=== PATIENT | male | born 1985 | race Caucasian/White ===

== ENCOUNTER 2016-08-19 14:24 | Emergency (ER) | payer OTHER ==
[2016-08-19] MEDS ORDERED: ONDANSETRON 4MG/2ML VIAL (J2405) As Ordered ONE (16:11)
[2016-08-19] MEDS ORDERED: KETOROLAC 30 MG/ML VIAL (J1885) As Ordered ONE (16:12)
[2016-08-19] MEDS ORDERED: GASTROGRAFIN SOLUTION 30ML (Q9963) As Ordered ONE (16:15)
[2016-08-19 16:27] LABS: BASO # 0.2 K/mm3 (0.0-0.2); EOS # 0.2 K/mm3 (0.0-0.50); EOS % 0.9 % (0.0-3.0); LARGE UNSTAINED CELL # 0.2 K/mm3 (0.0-0.4); LARGE UNSTAINED CELL % 0.9 % (0.0-4.0); LYMPH # 3.5 K/mm3 (1.5-4.5); LYMPH % 17.3 % (24.0-44.0); MEAN CORPUSCULAR HEMOGLOBIN 30.4 pg (27.0-33.0); MEAN CORPUSCULAR HGB CONC 36.1 g/dl (32.0-36.5); MEAN CORPUSCULAR VOLUME 84.1 fl (80.0-96.0); MONO # 0.9 K/mm3 (0.0-0.8); MONO % 4.5 % (0.0-5.0); NEUTROPHILS # 14.5 K/mm3 (1.8-7.7); NEUTROPHILS % 75.4 % (36.0-66.0); PLATELET COUNT, AUTOMATED 286 k/mm3 (150-450); WHITE BLOOD COUNT 19.2 K/mm3 (4.0-10.0)
[2016-08-19 16:48] LABS: ALBUMIN 4.7 GM/DL (3.2-5.2); ALBUMIN/GLOBULIN RATIO 1.31 (1.00-1.93); ALKALINE PHOSPHATASE 76 U/L (45-117); ALT/SGPT 21 U/L (12-78); AMYLASE 39 U/L (25-115); ANION GAP 11 MEQ/L (8-16); AST/SGOT 9 U/L (15-37); BILIRUBIN,DIRECT 0.1 MG/DL (0.0-0.2); BILIRUBIN,TOTAL 0.8 MG/DL (0.2-1.0); BLOOD UREA NITROGEN 25 MG/DL (7-18); CALCIUM LEVEL 9.7 MG/DL (8.5-10.1); CARBON DIOXIDE LEVEL 25 MEQ/L (21-32); CHLORIDE LEVEL 98 MEQ/L (98-107); CREATININE FOR GFR 1.22 MG/DL (0.70-1.30); GLOMERULAR FILTRATION RATE > 60.0 (>60); GLUCOSE, FASTING 121 MG/DL (70-105); POTASSIUM SERUM 3.7 MEQ/L (3.5-5.1); SODIUM LEVEL 134 MEQ/L (136-145); TOTAL PROTEIN 8.3 GM/DL (6.4-8.2)
--- NOTE | 2016-08-19 17:12 | REP ---
Clinical: Right upper quadrant pain with nausea and biliary colic. Findings: Real time lomeli scale ultrasound examination using curved array transducer demonstrates fatty infiltration to the liver without focal hepatic lesion. Limited evaluation the pancreas is unremarkable. The gallbladder is normal and without gallstones, wall thickening, or pericholecystic fluid. No biliary ductal dilatation is appreciated and the common bile duct measures 3.1 mm diameter. Right kidney is normal in reniform shape without hydronephrosis and measures 12.0 x 6.7 x 5.6 cm. No ascites in the visualized right upper quadrant. Impression: Fatty infiltration to the liver. Normal gallbladder and biliary system. Signed by Daryl Clark MD 08/19/2016 05:04 P
[2016-08-19] MEDS ORDERED: METOCLOPRAMIDE INJ 10MG/2ML VIAL (J2765) As Ordered ONE (17:24)
[2016-08-19] MEDS ORDERED: HYDROmorphone HCL 1 MG/ML SYRINGE (J1170) As Ordered ONE (17:24)
[2016-08-19] MEDS ORDERED: ISOVUE-370 76% 100ML VIAL (Q9967) As Ordered ONE (17:46)
--- NOTE | 2016-08-19 18:21 | REP ---
Clinical: Biliary colic. Comparison: 04/22/2015. Technique: Axial contrast enhanced images from the lung bases to the pubic symphysis using oral and 100 ml Isovue 370 intravenous contrast material with coronal and sagittal re-formations. Findings: Lung bases are clear. Visualized heart and pericardium normal. Liver, spleen, pancreas, gallbladder, bilateral adrenal glands and kidneys are normal. Small incidental area of fatty infiltration adjacent to the ligamentum teres within the liver appears benign. The enteric system is without obstruction. Mild mural thickening to the small bowel cannot be excluded and should be correlated with physical examination to exclude the possibility of inflammatory bowel disease. Normal cecum and appendix identified in the right lower quadrant. Pelvis demonstrates normal bladder and age appropriate prostate/seminal vesicles. No pelvic fluid or ascites. No adenopathy. No free air. Vasculature is normal. Surrounding musculoskeletal structures are intact. Impression: Cannot exclude mild diffuse small bowel mural thickening which requires correlation and raising the possibility of inflammatory bowel disease. No further acute intra-abdominal or pelvic pathology appreciated. Signed by Daryl Clark MD 08/19/2016 06:12 P
[2016-08-19] MEDS ORDERED: ONDANSETRON 4 MG ORAL DISINTEGRATING TAB (S0181) As Ordered ONE (19:27)
[2016-08-19] MEDS ORDERED: NORCO 5/325MG TABLET (BULK) As Ordered ONE (19:28)
--- NOTE | 2016-08-19 19:45 | EDDOCDS ---
Nurse's Notes [facility] Name: Clint Palacio Age: 31 yrs Sex: Male : 1985 Arrival Date: 08/19/2016 Time: 14:24 Bed I2 / M2 Private MD: Sera Villa PA-C Diagnosis: Generalized abdominal pain Presentation: 08/19 14:35 Presenting complaint: Patient states: started with some abdominal pain Monday. dy diagnosed with IBS. thinks that he has cyclic vomiting syndrome. having pain to RUQ area. Risk factors: the patient reports not having a history of previous torsion. Adult Sepsis Screening: The patient does not have new or worsening altered mentation. Patient's respiratory rate is less than 22. Systolic blood pressure is greater than 100. Patient has a qSOFA score of 0- Negative Sepsis Screen. Suicide/Homicide risk assessment- the patient denies having any suicidal and/or homicidal ideations and does not present with any other emotional, behavioral or mental health complaints. 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 Transition of care: patient was not received from another setting of care. 14:35 Acuity: RADHA Level 3 dy 14:35 Method Of Arrival: Walkin/Carried/Asstd dy Triage Assessment: 14:37 General: Appears uncomfortable. Pain: Location: right upper quadrant Pain currently is dy 8 out of 10 on a pain scale. HIV screening NA for this visit Offered previously. GI: Reports nausea, vomiting. Historical: - Allergies: No known drug Allergies; - Home Meds: 1. none - PMHx: Irritable bowel syndrome; calcified aortic valve; - PSHx: none; - Social history: Smoking status: Patient states was never smoker of tobacco. No barriers to communication noted, The patient speaks fluent Greenlandic, Speaks appropriately for age. - Family history: Not pertinent. - : The pt / caregiver states he / she is not on anticoagulants. Home medication list is obtained from the patient. - Exposure Risk Screening:: None identified. Screenin:34 Screening information is obtained from the patient. Fall risk: No risks identified. kc3 Assistance ADL's: requires no assistance with activities of daily living. Abuse/DV Screen: The patient / caregiver reports he/she is: not in a situation that causes fear, pain or injury. Nutritional screening: No deficits noted. home support is adequate. 19:43 Advance Directives: There is no active DNR order. mcp Assessment: 16:33 General: Appears uncomfortable, Behavior is appropriate for age, crying. Pain: kc3 Location: right upper quadrant Pain currently is 8 out of 10 on a pain scale. Neurological: Level of Consciousness is awake, alert, obeys commands, Oriented to person, place, time. Respiratory: Respiratory effort is even, unlabored, Respiratory pattern is regular, symmetrical. GI: Abdomen is obese, Bowel sounds present X 4 quads. Abd is soft X 4 quads Abd is tender to palpation in right upper quadrant Reports nausea, vomiting. Derm: Skin is pink, warm & dry. Musculoskeletal: Circulation, motion, and sensation intact. 17:39 General: Appears uncomfortable, Behavior is appropriate for age, cooperative. Pain: kc3 Location: abdomen. Neurological: Level of Consciousness is awake, alert, obeys commands, Oriented to person, place, time. Respiratory: Respiratory effort is even, unlabored, Respiratory pattern is regular, symmetrical. Derm: Skin is pink, warm & dry. Musculoskeletal: Circulation, motion, and sensation intact. 18:52 General: Appears ambulated to bathroom with steady gait.. k 19:42 General: Appears ill, Behavior is cooperative. Pain: Location: abdomen Pain currently mcp is 5 out of 10 on a pain scale. Neurological: No deficits noted. Respiratory: Airway is patent Respiratory effort is even, unlabored. Derm: Skin is pink, warm & dry. Vital Signs: 14:27 BP 176 / 116; Pulse 89; Resp 18 S; Temp 97.5; Pulse Ox 99% on R/A; Weight 117.93 kg dd6 (R); Height 5 ft. 11 in. (180.34 cm); Pain 10/10; 17:28 BP 162 / 94; Pulse 76; Resp 18; Temp 99.2(TE); Pulse Ox 98% on R/A; Pain 6/10; nb2 18:08 BP 128 / 60; Pulse 62; Resp 18; Temp 98.5(O); Pulse Ox 94% on R/A; Pain 3/10; nb2 19:41 BP 169 / 91; Pulse 69; Resp 20; Temp 98; Pulse Ox 99% on R/A; Pain 5/10; mcp 14:27 Body Mass Index 36.26 (117.93 kg, 180.34 cm) dd6 Vitals: 14:27 Log In Time: August 19, 2016 at 14:25. dd6 ED Course: 14:25 Patient visited by Alvin Fisher PCA. dd6 14:25 Sera Villa is Private Physician. dd6 14:25 Patient moved to Waiting dd6 14:27 Patient moved to Pre RCE dd6 14:36 Triage Initiated dy 14:49 Patient moved to Triage 3 dy 15:00 Patient visited by Neha De Los Santos PCA. jb5 15:29 Patient visited by Neha De Los Santos PCA. jb5 15:48 Patient visited by Neha De Los Santos PCA. jb5 15:51 Julia Olea PA-C is PHCP. dt4 15:51 Alia Gonzalez MD is Attending Physician. dt4 15:51 Patient visited by Julia Olea PA-C. dt4 16:01 Patient moved to I2 / M2 jb5 16:15 [facility] Payment Agreement was scanned into [employer] and attached to record. gjb 16:34 Inserted saline lock: 20 gauge in right antecubital area and blood collected. The kc3 patient tolerated the procedure well. Labs drawn. (by ED staff). Sent per order to lab. 16:35 The patient / caregiver is instructed regarding the plan of care and ED course. kc3 16:36 Patient visited by Philly Cartagena RN. kc3 16:46 Patient moved to Ultrasound am17 17:02 Patient moved to I2 / M2 am17 17:16 US Abd Limited Returned. EDMS 17:18 Patient visited by Julia Olea PA-C. dt4 17:28 Patient visited by Gifty Riggs. nb2 18:02 PHCP role handed off by Julia Olea PA-C mo1 18:02 René Clancy PA is PHCP. mo1 18:05 Patient visited by Philly Cartagena RN. kc3 18:08 Patient visited by Gifty Riggs. nb2 18:58 Urine Culture Sent. jmk 18:58 Urinalysis Sent. jmk 19:08 CT ABD & PELVIS: IV and Oral Contrast Returned. EDMS 19:17 Patient visited by Evelyn Bolivar RN. af2 19:18 Sera Villa is Referral Physician. mo1 19:18 Wong Horn is Referral Physician. mo1 19:43 Discontinued lock intact, bleeding controlled, pressure dressing applied, No mcp redness/swelling at site. No procedures done that require assistance. Administered Medications: 16:20 Drug: NS 0.9% 1000 ml [sodium chloride 0.9 % intravenous solution] Route: IV; Rate: kc3 bolus; Site: right antecubital; 18:04 Follow up: IV Status: Completed infusion kc3 16:20 Drug: Ondansetron 4 mg [ondansetron HCl 2 mg/mL intravenous solution (2 mL)] Route: kc3 IVP; Site: right antecubital; 18:04 Follow up: Response: No Adverse Reaction kc3 16:20 Drug: ketorolac 30 mg [ketorolac 30 mg/mL (1 mL) injection solution (1 mL)] Route: IVP; kc3 Site: right antecubital; 18:05 Follow up: Response: Pain is unchanged, physician notified kc3 16:30 Drug: Diatrizoate Meglumine & Sodium 10 ml [diatrizoate meglumine and diat.sodium 66 kc3 %-10 % oral solution (10 mL)] Route: PO; 17:00 Drug: Diatrizoate Meglumine & Sodium 10 ml [diatrizoate meglumine and diat.sodium 66 kc3 %-10 % oral solution (10 mL)] Route: PO; 17:39 Drug: Dilaudid - HYDROmorphone 1 mg [hydromorphone 1 mg/mL injection syringe (1 mL)] kc3 Route: IVP; Site: right antecubital; 17:39 Drug: Metoclopramide 10 mg [metoclopramide 5 mg/mL injection solution] Route: IV; Rate: kc3 40 mg/hr; Infused Over: 15 mins; Site: right antecubital; 18:13 Follow up: IV Status: Completed infusion kc3 18:04 Drug: NS 0.9% 1000 ml [sodium chloride 0.9 % intravenous solution] Route: IV; Rate: kc3 bolus; Site: right antecubital; 19:40 Follow up: IV Status: Completed infusion; IV Intake: 1000ml mcp 19:34 Drug: HYDROcodone-acetaminophen 4 pack- 1 packets [hydrocodone 5 mg-acetaminophen 325 mcp mg tablet (1 tabs)] {Co-Signature: af2 (Evelyn Bolivar RN).} Route: PO; 19:43 Drug: Ondansetron ODT 4 mg [ondansetron 4 mg disintegrating tablet (1 tabs)] Route: PO; mcp Intake: 19:40 IV: 1000.00ml; Total: 1000.00ml. mcp Order Results: Lab Order: Amylase; SPEC'M 08/19/16 16:19 Test: AMYLASE; Value: 39; Range: 25-115; Units: U/L; Status: F Lab Order: Basic Metabolic Profile; SPEC'M 08/19/16 16:19 Test: GLUCOSE, FASTING; Value: 121; Range: 70-105; Abnormal: Above high normal; Units: MG/DL; Status: F Test: BLOOD UREA NITROGEN; Value: 25; Range: 7-18; Abnormal: Above high normal; Units: MG/DL; Status: F Test: CREATININE FOR GFR; Value: 1.22; Range: 0.70-1.30; Units: MG/DL; Status: F Test: GLOMERULAR FILTRATION RATE; Value: > 60.0; Range: >60; Status: F Test: SODIUM LEVEL; Value: 134; Range: 136-145; Abnormal: Below low normal; Units: MEQ/L; Status: F Test: POTASSIUM SERUM; Value: 3.7; Range: 3.5-5.1; Units: MEQ/L; Status: F Test: CHLORIDE LEVEL; Value: 98; Range: 98-107; Units: MEQ/L; Status: F Test: CARBON DIOXIDE LEVEL; Value: 25; Range: 21-32; Units: MEQ/L; Status: F Test: ANION GAP; Value: 11; Range: 8-16; Units: MEQ/L; Status: F Test: CALCIUM LEVEL; Value: 9.7; Range: 8.5-10.1; Units: MG/DL; Status: F Test Note: ; Units are mL/min/1.73 m2 Chronic Kidney Disease Staging per NKF: Stage I & II GFR >=60 Normal to Mildly Decreased Stage III GFR 30-59 Moderately Decreased Stage IV GFR 15-29 Severely Decreased Stage V GFR <15 Very Little GFR Left ESRD GFR <15 on RN OUTPATIENT SURGERY Lab Order: CBC with Diff; SPEC'M 08/19/16 16:19 Test: WHITE BLOOD COUNT; Value: 19.2; Range: 4.0-10.0; Abnormal: Above high normal; Units: K/mm3; Status: F Test: RED BLOOD COUNT; Value: 5.66; Range: 4.30-6.10; Units: M/mm3; Status: F Test: HEMOGLOBIN; Value: 17.2; Range: 14.0-18.0; Units: g/dl; Status: F Test: HEMATOCRIT; Value: 47.7; Range: 42.0-52.0; Units: %; Status: F Test: MEAN CORPUSCULAR VOLUME; Value: 84.1; Range: 80.0-96.0; Units: fl; Status: F Test: MEAN CORPUSCULAR HEMOGLOBIN; Value: 30.4; Range: 27.0-33.0; Units: pg; Status: F Test: MEAN CORPUSCULAR HGB CONC; Value: 36.1; Range: 32.0-36.5; Units: g/dl; Status: F Test: RED CELL DISTRIBUTION WIDTH; Value: 13.0; Range: 11.5-14.5; Units: %; Status: F Test: PLATELET COUNT, AUTOMATED; Value: 286; Range: 150-450; Units: k/mm3; Status: F Test: NEUTROPHILS %; Value: 75.4; Range: 36.0-66.0; Abnormal: Above high normal; Units: %; Status: F Test: LYMPH %; Value: 17.3; Range: 24.0-44.0; Abnormal: Below low normal; Units: %; Status: F Test: MONO %; Value: 4.5; Range: 0.0-5.0; Units: %; Status: F Test: EOS %; Value: 0.9; Range: 0.0-3.0; Units: %; Status: F Test: BASO %; Value: 1.0; Range: 0.0-1.0; Units: %; Status: F Test: LARGE UNSTAINED CELL %; Value: 0.9; Range: 0.0-4.0; Units: %; Status: F Test: NEUTROPHILS #; Value: 14.5; Range: 1.8-7.7; Abnormal: Above high normal; Units: K/mm3; Status: F Test: LYMPH #; Value: 3.5; Range: 1.5-4.5; Units: K/mm3; Status: F Test: MONO #; Value: 0.9; Range: 0.0-0.8; Abnormal: Above high normal; Units: K/mm3; Status: F Test: EOS #; Value: 0.2; Range: 0.0-0.50; Units: K/mm3; Status: F Test: BASO #; Value: 0.2; Range: 0.0-0.2; Units: K/mm3; Status: F Test: LARGE UNSTAINED CELL #; Value: 0.2; Range: 0.0-0.4; Units: K/mm3; Status: F Lab Order: Lipase; [facility]' 08/19/16 16:19 Test: LIPASE; Value: 81; Range: 73-393; Units: U/L; Status: F Lab Order: Liver Profile; [facility]' 08/19/16 16:19 Test: AST/SGOT; Value: 9; Range: 15-37; Abnormal: Below low normal; Units: U/L; Status: F Test: ALT/SGPT; Value: 21; Range: 12-78; Units: U/L; Status: F Test: ALKALINE PHOSPHATASE; Value: 76; Range: 45-117; Units: U/L; Status: F Test: BILIRUBIN,TOTAL; Value: 0.8; Range: 0.2-1.0; Units: MG/DL; Status: F Test: BILIRUBIN,DIRECT; Value: 0.1; Range: 0.0-0.2; Units: MG/DL; Status: F Test: TOTAL PROTEIN; Value: 8.3; Range: 6.4-8.2; Abnormal: Above high normal; Units: GM/DL; Status: F Test: ALBUMIN; Value: 4.7; Range: 3.2-5.2; Units: GM/DL; Status: F Test: ALBUMIN/GLOBULIN RATIO; Value: 1.31; Range: 1.00-1.93; Status: F Lab Order: CRP; [facility]' 08/19/16 16:19 Test: C REACTIVE PROTEIN QUANTITATIV; Value: < 0.30; Range: 0.00-0.30; Units: MG/DL; Status: F Radiology Order: CT ABD & PELVIS: IV and Oral Contrast Test: CT ABD & PELVIS: IV and Oral Contrast REASON FOR EXAMINATION: Biliary Colic; Clinical: Biliary colic.; ; Comparison: 04/22/2015.; ; Technique: Axial contrast enhanced images from the lung bases to the pubic; symphysis using oral and 100 ml Isovue 370 intravenous contrast material with; coronal and sagittal re-formations.; ; Findings:; Lung bases are clear. Visualized heart and pericardium normal.; ; Liver, spleen, pancreas, gallbladder, bilateral adrenal glands and kidneys are; normal. Small incidental area of fatty infiltration adjacent to the ligamentum; teres within the liver appears benign. The enteric system is without; obstruction. Mild mural thickening to the small bowel cannot be excluded and; should be correlated with physical examination to exclude the possibility of; inflammatory bowel disease. Normal cecum and appendix identified in the right; lower quadrant. Pelvis demonstrates normal bladder and age appropriate; prostate/seminal vesicles. No pelvic fluid or ascites. No adenopathy. No free; air. Vasculature is normal. Surrounding musculoskeletal structures are intact.; ; Impression:; Cannot exclude mild diffuse small bowel mural thickening which requires; correlation and raising the possibility of inflammatory bowel disease.; No further acute intra-abdominal or pelvic pathology appreciated.; ; ; Signed by; Daryl Clark MD 08/19/2016 06:12 P; Radiology Order: US Abd Limited Test: US Abd Limited REASON FOR EXAMINATION: Biliary Colic; Clinical: Right upper quadrant pain with nausea and biliary colic.; ; Findings:; Real time lomeli scale ultrasound examination using curved array transducer; demonstrates fatty infiltration to the liver without focal hepatic lesion.; Limited evaluation the pancreas is unremarkable. The gallbladder is normal and; without gallstones, wall thickening, or pericholecystic fluid. No biliary ductal; dilatation is appreciated and the common bile duct measures 3.1 mm diameter.; Right kidney is normal in reniform shape without hydronephrosis and measures 12.0; x 6.7 x 5.6 cm. No ascites in the visualized right upper quadrant.; ; Impression:; Fatty infiltration to the liver.; Normal gallbladder and biliary system.; ; ; Signed by; Daryl Clark MD 08/19/2016 05:04 P; Outcome: 19:18 Discharge ordered by Provider. mo1 19:42 Discharge Assessment: patient administered narcotics - yes. Pt provided with safe mcp discharge. The following High Risk Discharge criteria are identified: None. Discharged to home via wheelchair, with significant other. Condition: stable. Discharge instructions given to patient, Instructed on discharge instructions, follow up and referral plans. medication usage, Demonstrated understanding of instructions, medications, Pt was receptive of discharge instructions/ teaching. Prescriptions given X 2, Work note provided to patient. CT Study completed. Property sent home with patient. 19:43 Patient left the ED. [facility] Signatures: Dispatcher [employer] EDMS Miguel Joya RN RN jmk Peters, Mary, RN RN mcp Youngs, David, RN RN dy Baker, Janet, SHUCKER SHUCKER jb5 Alvin Fisher, SHUCKER SHUCKER dd6 René Clancy PA PA mo1 Lisette Lawrence am17 Julia Olea, PA-C PA-C dt4 Evelyn Bolivar RN RN af2 Philly Cartagena RN RN armando3 Daily Francisco Nicole 2 Evelyn Bolivar RN af2 SERAFIN
--- NOTE | 2016-08-19 19:45 | EDDOCDS ---
Physician Documentation [facility] Name: Clint Palacio Age: 31 yrs Sex: Male : 1985 Arrival Date: 08/19/2016 Time: 14:24 Bed I2 / M2 Private MD: Sera Villa PA-C Disposition: 08/19/16 19:18 Discharged to Home/Self Care. Impression: Generalized abdominal pain. - Condition is Stable. - Discharge Instructions: Abdominal Pain, Adult, Irritable Bowel Syndrome, Adult. - Prescriptions for [place] 5- 325 mg Oral Tablet - take 1 tablet by ORAL route every 6 hours As needed MDD: 4 tabs; 20 tablet. ZOFRAN ODT 4 mg - dissolve 1 tablet by ORAL route 4 times per day As needed do not chew, do not swallow whole; 10 tablet. - Work Release Form - 3 day, Medication Reconciliation, Local Pharmacy Hours form. - Follow up: Sera Villa; When: Call to arrange an appointment; Reason: Recheck today's complaints, Continuance of care. Follow up: Wong Horn; When: Call to arrange an appointment; Reason: Recheck today's complaints, Continuance of care. - Problem is new. - Symptoms are unchanged. Historical: - Allergies: No known drug Allergies; - Home Meds: 1. none - PMHx: Irritable bowel syndrome; calcified aortic valve; - PSHx: none; - Social history: Smoking status: Patient states was never smoker of tobacco. No barriers to communication noted, The patient speaks fluent Indonesian, Speaks appropriately for age. - Family history: Not pertinent. - : The pt / caregiver states he / she is not on anticoagulants. Home medication list is obtained from the patient. - Exposure Risk Screening:: None identified. Vital Signs: 08/19 14:27 BP 176 / 116; Pulse 89; Resp 18 S; Temp 97.5; Pulse Ox 99% on R/A; Weight 117.93 kg / dd6 259.99 lbs (R); Height 5 ft. 11 in. (180.34 cm); Pain 10/10; 17:28 BP 162 / 94; Pulse 76; Resp 18; Temp 99.2(TE); Pulse Ox 98% on R/A; Pain 6/10; nb2 18:08 BP 128 / 60; Pulse 62; Resp 18; Temp 98.5(O); Pulse Ox 94% on R/A; Pain 3/10; nb2 19:41 BP 169 / 91; Pulse 69; Resp 20; Temp 98; Pulse Ox 99% on R/A; Pain 5/10; mcp 14:27 Body Mass Index 36.26 (117.93 kg, 180.34 cm) dd6 MDM: 16:07 NS 0.9% 1000 ml IV at bolus once ordered. dt4 16:07 Ondansetron 4 mg IVP once ordered. dt4 16:07 ketorolac 30 mg IVP once ordered. dt4 16:07 IV Saline Lock ordered. dt4 16:07 Undress patient appropriately for examination ordered. dt4 16:07 NS 0.9% 1000 ml IV at bolus once ordered. dt4 16:08 Amylase Ordered. EDMS 16:08 Basic Metabolic Profile Ordered. EDMS 16:08 CBC with Diff Ordered. EDMS 16:08 Lipase Ordered. EDMS 16:08 Liver Profile Ordered. EDMS 16:08 Urinalysis Ordered. EDMS 16:08 CRP Ordered. EDMS 16:09 Urine Culture Ordered. EDMS 16:09 US Abd Limited Ordered. EDMS 16:09 CT ABD & PELVIS: IV and Oral Contrast Ordered. EDMS 16:09 NOTHING BY MOUTH+DIET ordered. EDMS 16:12 Financial registration complete. gjb 16:15 [facility] [place] was [place] into [employer] and attached to record. gjb 16:35 Diatrizoate Meglumine & Sodium Liquid 10 ml PO once; mix in 290cc of water ordered. kc3 16:35 Diatrizoate Meglumine & Sodium Liquid 10 ml PO once; mix in 290cc of water - admin at kc3 5pm ordered. 17:21 Dilaudid - HYDROmorphone 1 mg IVP once ordered. dt4 17:21 Metoclopramide 10 mg IV at 40 mg/hr once over 15 mins ordered. dt4 19:14 HYDROcodone-acetaminophen 4 pack- 5 mg-325 mg 1 packets PO Per package directions; mo1 Dispense with patient. 1 po q4h prn for pain ordered. 19:14 Ondansetron ODT Oral Disintegrating Tablet 4 mg PO once ordered. mo1 19:15 US Abd Limited Reviewed. mo1 19:15 CT ABD & PELVIS: IV and Oral Contrast Reviewed. mo1 Administered Medications: 16:20 Drug: NS 0.9% 1000 ml [sodium chloride 0.9 % intravenous solution] Route: IV; Rate: kc3 bolus; Site: right antecubital; 18:04 Follow up: IV Status: Completed infusion kc3 16:20 Drug: Ondansetron 4 mg [ondansetron HCl 2 mg/mL intravenous solution (2 mL)] Route: kc3 IVP; Site: right antecubital; 18:04 Follow up: Response: No Adverse Reaction kc3 16:20 Drug: ketorolac 30 mg [ketorolac 30 mg/mL (1 mL) injection solution (1 mL)] Route: IVP; kc3 Site: right antecubital; 18:05 Follow up: Response: Pain is unchanged, physician notified kc3 16:30 Drug: Diatrizoate Meglumine & Sodium 10 ml [diatrizoate meglumine and diat.sodium 66 kc3 %-10 % oral solution (10 mL)] Route: PO; 17:00 Drug: Diatrizoate Meglumine & Sodium 10 ml [diatrizoate meglumine and diat.sodium 66 kc3 %-10 % oral solution (10 mL)] Route: PO; 17:39 Drug: Dilaudid - HYDROmorphone 1 mg [hydromorphone 1 mg/mL injection syringe (1 mL)] kc3 Route: IVP; Site: right antecubital; 17:39 Drug: Metoclopramide 10 mg [metoclopramide 5 mg/mL injection solution] Route: IV; Rate: kc3 40 mg/hr; Infused Over: 15 mins; Site: right antecubital; 18:13 Follow up: IV Status: Completed infusion kc3 18:04 Drug: NS 0.9% 1000 ml [sodium chloride 0.9 % intravenous solution] Route: IV; Rate: kc3 bolus; Site: right antecubital; 19:40 Follow up: IV Status: Completed infusion; IV Intake: 1000ml mcp 19:34 Drug: HYDROcodone-acetaminophen 4 pack- 1 packets [hydrocodone 5 mg-acetaminophen 325 mcp mg tablet (1 tabs)] {Co-Signature: af2 (Evelyn Bolivar RN).} Route: PO; 19:43 Drug: Ondansetron ODT 4 mg [ondansetron 4 mg disintegrating tablet (1 tabs)] Route: PO; [facility] Signatures: Dispatcher [employer] Kalyn Neumann RN RN mcp Youngs, David, RN RN dy O'Hagan, Michael, PA PA mo1 Julia Olea PA-C PA-C dt4 Philly Cartagena RN RN kc3 Daily Francisco RN af2 The chart was reviewed and I authenticate all verbal orders and agree with the evaluation and treatment provided.Attachments: 16:15 [facility] Payment Agreement jayna [email or web address]
--- NOTE | 2016-08-21 20:44 | EDDOCDS ---
Physician Documentation [facility] Name: Clint Palacio Age: 31 yrs Sex: Male : 1985 Arrival Date: 08/19/2016 Time: 14:24 Bed I2 / M2 Private MD: Sera Villa PA-C Disposition: 08/19/16 19:18 Discharged to Home/Self Care. Impression: Generalized abdominal pain. - Condition is Stable. - Discharge Instructions: Abdominal Pain, Adult, Irritable Bowel Syndrome, Adult. - Prescriptions for [place] 5- 325 mg Oral Tablet - take 1 tablet by ORAL route every 6 hours As needed MDD: 4 tabs; 20 tablet. ZOFRAN ODT 4 mg - dissolve 1 tablet by ORAL route 4 times per day As needed do not chew, do not swallow whole; 10 tablet. - Work Release Form - 3 day, Medication Reconciliation, Local Pharmacy Hours form. - Follow up: Sera Villa; When: Call to arrange an appointment; Reason: Recheck today's complaints, Continuance of care. Follow up: Wong Horn; When: Call to arrange an appointment; Reason: Recheck today's complaints, Continuance of care. - Problem is new. - Symptoms are unchanged. Historical: - Allergies: No known drug Allergies; - Home Meds: 1. none - PMHx: Irritable bowel syndrome; calcified aortic valve; - PSHx: none; - Social history: Smoking status: Patient states was never smoker of tobacco. No barriers to communication noted, The patient speaks fluent Chinese, Speaks appropriately for age. - Family history: Not pertinent. - : The pt / caregiver states he / she is not on anticoagulants. Home medication list is obtained from the patient. - Exposure Risk Screening:: None identified. Vital Signs: 08/19 14:27 BP 176 / 116; Pulse 89; Resp 18 S; Temp 97.5; Pulse Ox 99% on R/A; Weight 117.93 kg / dd6 259.99 lbs (R); Height 5 ft. 11 in. (180.34 cm); Pain 10/10; 17:28 BP 162 / 94; Pulse 76; Resp 18; Temp 99.2(TE); Pulse Ox 98% on R/A; Pain 6/10; nb2 18:08 BP 128 / 60; Pulse 62; Resp 18; Temp 98.5(O); Pulse Ox 94% on R/A; Pain 3/10; nb2 19:41 BP 169 / 91; Pulse 69; Resp 20; Temp 98; Pulse Ox 99% on R/A; Pain 5/10; mcp 14:27 Body Mass Index 36.26 (117.93 kg, 180.34 cm) dd6 MDM: 16:07 NS 0.9% 1000 ml IV at bolus once ordered. dt4 16:07 Ondansetron 4 mg IVP once ordered. dt4 16:07 ketorolac 30 mg IVP once ordered. dt4 16:07 IV Saline Lock ordered. dt4 16:07 Undress patient appropriately for examination ordered. dt4 16:07 NS 0.9% 1000 ml IV at bolus once ordered. dt4 16:08 Amylase Ordered. EDMS 16:08 Basic Metabolic Profile Ordered. EDMS 16:08 CBC with Diff Ordered. EDMS 16:08 Lipase Ordered. EDMS 16:08 Liver Profile Ordered. EDMS 16:08 Urinalysis Ordered. EDMS 16:08 CRP Ordered. EDMS 16:09 Urine Culture Ordered. EDMS 16:09 US Abd Limited Ordered. EDMS 16:09 CT ABD & PELVIS: IV and Oral Contrast Ordered. EDMS 16:09 NOTHING BY MOUTH+DIET ordered. EDMS 16:12 Financial registration complete. gjb 16:15 [facility] was scanned into [employer] and attached to record. gjb 16:35 Diatrizoate Meglumine & Sodium Liquid 10 ml PO once; mix in 290cc of water ordered. kc3 16:35 Diatrizoate Meglumine & Sodium Liquid 10 ml PO once; mix in 290cc of water - admin at kc3 5pm ordered. 17:21 Dilaudid - HYDROmorphone 1 mg IVP once ordered. dt4 17:21 Metoclopramide 10 mg IV at 40 mg/hr once over 15 mins ordered. dt4 19:14 HYDROcodone-acetaminophen 4 pack- 5 mg-325 mg 1 packets PO Per package directions; mo1 Dispense with patient. 1 po q4h prn for pain ordered. 19:14 Ondansetron ODT Oral Disintegrating Tablet 4 mg PO once ordered. mo1 19:15 US Abd Limited Reviewed. mo1 19:15 CT ABD & PELVIS: IV and Oral Contrast Reviewed. mo1 08/20 09:04 T-Sheet-- Draft Copy was scanned into [employer] and attached to record. gb Administered Medications: 08/19 16:20 Drug: NS 0.9% 1000 ml [sodium chloride 0.9 % intravenous solution] Route: IV; Rate: kc3 bolus; Site: right antecubital; 18:04 Follow up: IV Status: Completed infusion kc3 16:20 Drug: Ondansetron 4 mg [ondansetron HCl 2 mg/mL intravenous solution (2 mL)] Route: kc3 IVP; Site: right antecubital; 18:04 Follow up: Response: No Adverse Reaction kc3 16:20 Drug: ketorolac 30 mg [ketorolac 30 mg/mL (1 mL) injection solution (1 mL)] Route: IVP; kc3 Site: right antecubital; 18:05 Follow up: Response: Pain is unchanged, physician notified kc3 16:30 Drug: Diatrizoate Meglumine & Sodium 10 ml [diatrizoate meglumine and diat.sodium 66 kc3 %-10 % oral solution (10 mL)] Route: PO; 17:00 Drug: Diatrizoate Meglumine & Sodium 10 ml [diatrizoate meglumine and diat.sodium 66 kc3 %-10 % oral solution (10 mL)] Route: PO; 17:39 Drug: Dilaudid - HYDROmorphone 1 mg [hydromorphone 1 mg/mL injection syringe (1 mL)] kc3 Route: IVP; Site: right antecubital; 17:39 Drug: Metoclopramide 10 mg [metoclopramide 5 mg/mL injection solution] Route: IV; Rate: kc3 40 mg/hr; Infused Over: 15 mins; Site: right antecubital; 18:13 Follow up: IV Status: Completed infusion kc3 18:04 Drug: NS 0.9% 1000 ml [sodium chloride 0.9 % intravenous solution] Route: IV; Rate: kc3 bolus; Site: right antecubital; 19:40 Follow up: IV Status: Completed infusion; IV Intake: 1000ml mcp 19:34 Drug: HYDROcodone-acetaminophen 4 pack- 1 packets [hydrocodone 5 mg-acetaminophen 325 mcp mg tablet (1 tabs)] {Co-Signature: af2 (Evelyn Bolivar RN).} Route: PO; 19:43 Drug: Ondansetron ODT 4 mg [ondansetron 4 mg disintegrating tablet (1 tabs)] Route: PO; [facility] Signatures: Dispatcher [employer] Kalyn Neumann, RN RN Mary Anne Germain, Reg Reg gb Wong Mcgill RN RN dy René Clancy PA PA mo1 Julia Olea PA-C PA-C dt4 Philly Cartagena RN RN armando3 Daily Francisco RN af2 The chart was reviewed and I authenticate all verbal orders and agree with the evaluation and treatment provided.Attachments: 16:15 [facility] Payment Agreement gjb 08/20 09:04 T-Sheet-- Draft Copy gb Chart Complete MTDD
--- NOTE | 2016-08-21 20:44 | EDDOCDS ---
Physician Documentation [facility] Name: Clint Palacio Age: 31 yrs Sex: Male : 1985 Arrival Date: 08/19/2016 Time: 14:24 Bed I2 / M2 Private MD: Sera Villa PA-C Disposition: 08/19/16 19:18 Discharged to Home/Self Care. Impression: Generalized abdominal pain. - Condition is Stable. - Discharge Instructions: Abdominal Pain, Adult, Irritable Bowel Syndrome, Adult. - Prescriptions for [place] 5- 325 mg Oral Tablet - take 1 tablet by ORAL route every 6 hours As needed MDD: 4 tabs; 20 tablet. ZOFRAN ODT 4 mg - dissolve 1 tablet by ORAL route 4 times per day As needed do not chew, do not swallow whole; 10 tablet. - Work Release Form - 3 day, Medication Reconciliation, Local Pharmacy Hours form. - Follow up: Sera Villa; When: Call to arrange an appointment; Reason: Recheck today's complaints, Continuance of care. Follow up: Wong Horn; When: Call to arrange an appointment; Reason: Recheck today's complaints, Continuance of care. - Problem is new. - Symptoms are unchanged. Historical: - Allergies: No known drug Allergies; - Home Meds: 1. none - PMHx: Irritable bowel syndrome; calcified aortic valve; - PSHx: none; - Social history: Smoking status: Patient states was never smoker of tobacco. No barriers to communication noted, The patient speaks fluent Nepali, Speaks appropriately for age. - Family history: Not pertinent. - : The pt / caregiver states he / she is not on anticoagulants. Home medication list is obtained from the patient. - Exposure Risk Screening:: None identified. Vital Signs: 08/19 14:27 BP 176 / 116; Pulse 89; Resp 18 S; Temp 97.5; Pulse Ox 99% on R/A; Weight 117.93 kg / dd6 259.99 lbs (R); Height 5 ft. 11 in. (180.34 cm); Pain 10/10; 17:28 BP 162 / 94; Pulse 76; Resp 18; Temp 99.2(TE); Pulse Ox 98% on R/A; Pain 6/10; nb2 18:08 BP 128 / 60; Pulse 62; Resp 18; Temp 98.5(O); Pulse Ox 94% on R/A; Pain 3/10; nb2 19:41 BP 169 / 91; Pulse 69; Resp 20; Temp 98; Pulse Ox 99% on R/A; Pain 5/10; mcp 14:27 Body Mass Index 36.26 (117.93 kg, 180.34 cm) dd6 MDM: 16:07 NS 0.9% 1000 ml IV at bolus once ordered. dt4 16:07 Ondansetron 4 mg IVP once ordered. dt4 16:07 ketorolac 30 mg IVP once ordered. dt4 16:07 IV Saline Lock ordered. dt4 16:07 Undress patient appropriately for examination ordered. dt4 16:07 NS 0.9% 1000 ml IV at bolus once ordered. dt4 16:08 Amylase Ordered. EDMS 16:08 Basic Metabolic Profile Ordered. EDMS 16:08 CBC with Diff Ordered. EDMS 16:08 Lipase Ordered. EDMS 16:08 Liver Profile Ordered. EDMS 16:08 Urinalysis Ordered. EDMS 16:08 CRP Ordered. EDMS 16:09 Urine Culture Ordered. EDMS 16:09 US Abd Limited Ordered. EDMS 16:09 CT ABD & PELVIS: IV and Oral Contrast Ordered. EDMS 16:09 NOTHING BY MOUTH+DIET ordered. EDMS 16:12 Financial registration complete. gjb 16:15 [facility] Agreement was scanned into [employer] and attached to record. gjb 16:35 Diatrizoate Meglumine & Sodium Liquid 10 ml PO once; mix in 290cc of water ordered. kc3 16:35 Diatrizoate Meglumine & Sodium Liquid 10 ml PO once; mix in 290cc of water - admin at kc3 5pm ordered. 17:21 Dilaudid - HYDROmorphone 1 mg IVP once ordered. dt4 17:21 Metoclopramide 10 mg IV at 40 mg/hr once over 15 mins ordered. dt4 19:14 HYDROcodone-acetaminophen 4 pack- 5 mg-325 mg 1 packets PO Per package directions; mo1 Dispense with patient. 1 po q4h prn for pain ordered. 19:14 Ondansetron ODT Oral Disintegrating Tablet 4 mg PO once ordered. mo1 19:15 US Abd Limited Reviewed. mo1 19:15 CT ABD & PELVIS: IV and Oral Contrast Reviewed. mo1 08/20 09:04 T-Sheet-- Draft Copy was scanned into [employer] and attached to record. gb Administered Medications: 08/19 16:20 Drug: NS 0.9% 1000 ml [sodium chloride 0.9 % intravenous solution] Route: IV; Rate: kc3 bolus; Site: right antecubital; 18:04 Follow up: IV Status: Completed infusion kc3 16:20 Drug: Ondansetron 4 mg [ondansetron HCl 2 mg/mL intravenous solution (2 mL)] Route: kc3 IVP; Site: right antecubital; 18:04 Follow up: Response: No Adverse Reaction kc3 16:20 Drug: ketorolac 30 mg [ketorolac 30 mg/mL (1 mL) injection solution (1 mL)] Route: IVP; kc3 Site: right antecubital; 18:05 Follow up: Response: Pain is unchanged, physician notified kc3 16:30 Drug: Diatrizoate Meglumine & Sodium 10 ml [diatrizoate meglumine and diat.sodium 66 kc3 %-10 % oral solution (10 mL)] Route: PO; 17:00 Drug: Diatrizoate Meglumine & Sodium 10 ml [diatrizoate meglumine and diat.sodium 66 kc3 %-10 % oral solution (10 mL)] Route: PO; 17:39 Drug: Dilaudid - HYDROmorphone 1 mg [hydromorphone 1 mg/mL injection syringe (1 mL)] kc3 Route: IVP; Site: right antecubital; 17:39 Drug: Metoclopramide 10 mg [metoclopramide 5 mg/mL injection solution] Route: IV; Rate: kc3 40 mg/hr; Infused Over: 15 mins; Site: right antecubital; 18:13 Follow up: IV Status: Completed infusion kc3 18:04 Drug: NS 0.9% 1000 ml [sodium chloride 0.9 % intravenous solution] Route: IV; Rate: kc3 bolus; Site: right antecubital; 19:40 Follow up: IV Status: Completed infusion; IV Intake: 1000ml mcp 19:34 Drug: HYDROcodone-acetaminophen 4 pack- 1 packets [hydrocodone 5 mg-acetaminophen 325 mcp mg tablet (1 tabs)] {Co-Signature: af2 (Evelyn Bolivar RN).} Route: PO; 19:43 Drug: Ondansetron ODT 4 mg [ondansetron 4 mg disintegrating tablet (1 tabs)] Route: PO; [facility] Signatures: Dispatcher [employer] Kalyn Neumann, RN RN Mary Anne Germain, Reg Reg gb Wong Mcgill RN RN dy René Clancy PA PA mo1 Julia Olea PA-C PA-C dt4 Philly Cartagena RN RN armando3 Daily Francisco RN af2 The chart was reviewed and I authenticate all verbal orders and agree with the evaluation and treatment provided.Attachments: 16:15 [facility] Payment Agreement gjb 08/20 09:04 T-Sheet-- Draft Copy gb Chart Complete MTDD
--- NOTE | 2016-08-21 20:44 | EDDOCDS ---
Nurse's Notes [facility] Name: Clint Palacio Age: 31 yrs Sex: Male : 1985 Arrival Date: 08/19/2016 Time: 14:24 Bed I2 / M2 Private MD: Sera Villa PA-C Diagnosis: Generalized abdominal pain Presentation: 08/19 14:35 Presenting complaint: Patient states: started with some abdominal pain Monday. dy diagnosed with IBS. thinks that he has cyclic vomiting syndrome. having pain to RUQ area. Risk factors: the patient reports not having a history of previous torsion. Adult Sepsis Screening: The patient does not have new or worsening altered mentation. Patient's respiratory rate is less than 22. Systolic blood pressure is greater than 100. Patient has a qSOFA score of 0- Negative Sepsis Screen. Suicide/Homicide risk assessment- the patient denies having any suicidal and/or homicidal ideations and does not present with any other emotional, behavioral or mental health complaints. 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 Transition of care: patient was not received from another setting of care. 14:35 Acuity: RADHA Level 3 dy 14:35 Method Of Arrival: Walkin/Carried/Asstd dy Triage Assessment: 14:37 General: Appears uncomfortable. Pain: Location: right upper quadrant Pain currently is dy 8 out of 10 on a pain scale. HIV screening NA for this visit Offered previously. GI: Reports nausea, vomiting. Historical: - Allergies: No known drug Allergies; - Home Meds: 1. none - PMHx: Irritable bowel syndrome; calcified aortic valve; - PSHx: none; - Social history: Smoking status: Patient states was never smoker of tobacco. No barriers to communication noted, The patient speaks fluent Maltese, Speaks appropriately for age. - Family history: Not pertinent. - : The pt / caregiver states he / she is not on anticoagulants. Home medication list is obtained from the patient. - Exposure Risk Screening:: None identified. Screenin:34 Screening information is obtained from the patient. Fall risk: No risks identified. kc3 Assistance ADL's: requires no assistance with activities of daily living. Abuse/DV Screen: The patient / caregiver reports he/she is: not in a situation that causes fear, pain or injury. Nutritional screening: No deficits noted. home support is adequate. 19:43 Advance Directives: There is no active DNR order. mcp Assessment: 16:33 General: Appears uncomfortable, Behavior is appropriate for age, crying. Pain: kc3 Location: right upper quadrant Pain currently is 8 out of 10 on a pain scale. Neurological: Level of Consciousness is awake, alert, obeys commands, Oriented to person, place, time. Respiratory: Respiratory effort is even, unlabored, Respiratory pattern is regular, symmetrical. GI: Abdomen is obese, Bowel sounds present X 4 quads. Abd is soft X 4 quads Abd is tender to palpation in right upper quadrant Reports nausea, vomiting. Derm: Skin is pink, warm & dry. Musculoskeletal: Circulation, motion, and sensation intact. 17:39 General: Appears uncomfortable, Behavior is appropriate for age, cooperative. Pain: kc3 Location: abdomen. Neurological: Level of Consciousness is awake, alert, obeys commands, Oriented to person, place, time. Respiratory: Respiratory effort is even, unlabored, Respiratory pattern is regular, symmetrical. Derm: Skin is pink, warm & dry. Musculoskeletal: Circulation, motion, and sensation intact. 18:52 General: Appears ambulated to bathroom with steady gait.. k 19:42 General: Appears ill, Behavior is cooperative. Pain: Location: abdomen Pain currently mcp is 5 out of 10 on a pain scale. Neurological: No deficits noted. Respiratory: Airway is patent Respiratory effort is even, unlabored. Derm: Skin is pink, warm & dry. Vital Signs: 14:27 BP 176 / 116; Pulse 89; Resp 18 S; Temp 97.5; Pulse Ox 99% on R/A; Weight 117.93 kg dd6 (R); Height 5 ft. 11 in. (180.34 cm); Pain 10/10; 17:28 BP 162 / 94; Pulse 76; Resp 18; Temp 99.2(TE); Pulse Ox 98% on R/A; Pain 6/10; nb2 18:08 BP 128 / 60; Pulse 62; Resp 18; Temp 98.5(O); Pulse Ox 94% on R/A; Pain 3/10; nb2 19:41 BP 169 / 91; Pulse 69; Resp 20; Temp 98; Pulse Ox 99% on R/A; Pain 5/10; mcp 14:27 Body Mass Index 36.26 (117.93 kg, 180.34 cm) dd6 Vitals: 14:27 Log In Time: August 19, 2016 at 14:25. dd6 ED Course: 14:25 Patient visited by Alvin Fisher PCA. dd6 14:25 Sera Villa is Private Physician. dd6 14:25 Patient moved to Waiting dd6 14:27 Patient moved to Pre RCE dd6 14:36 Triage Initiated dy 14:49 Patient moved to Triage 3 dy 15:00 Patient visited by Neha De Los Santos PCA. jb5 15:29 Patient visited by Neha De Los Santos PCA. jb5 15:48 Patient visited by Neha De Los Santos PCA. jb5 15:51 Julia Olea PA-C is PHCP. dt4 15:51 Alia Gonzalez MD is Attending Physician. dt4 15:51 Patient visited by Julia Olea PA-C. dt4 16:01 Patient moved to I2 / M2 jb5 16:15 [facility] Payment Agreement was scanned into [facility] and attached to record. gjb 16:34 Inserted saline lock: 20 gauge in right antecubital area and blood collected. The kc3 patient tolerated the procedure well. Labs drawn. (by ED staff). Sent per order to lab. 16:35 The patient / caregiver is instructed regarding the plan of care and ED course. kc3 16:36 Patient visited by Philly Cartagena RN. kc3 16:46 Patient moved to Ultrasound am17 17:02 Patient moved to I2 / M2 am17 17:16 US Abd Limited Returned. EDMS 17:18 Patient visited by Julia Olea PA-C. dt4 17:28 Patient visited by Gifty Riggs. nb2 18:02 PHCP role handed off by Julia Olea PA-C mo1 18:02 René Clancy PA is PHCP. mo1 18:05 Patient visited by Philly Cartagena RN. kc3 18:08 Patient visited by Gifty Riggs. nb2 18:58 Urine Culture Sent. jmk 18:58 Urinalysis Sent. jmk 19:08 CT ABD & PELVIS: IV and Oral Contrast Returned. EDMS 19:17 Patient visited by Evelyn Bolivar RN. af2 19:18 Sera Villa is Referral Physician. mo1 19:18 Wong Horn is Referral Physician. mo1 19:43 Discontinued lock intact, bleeding controlled, pressure dressing applied, No mcp redness/swelling at site. No procedures done that require assistance. 08/20 09:04 T-Sheet-- Draft Copy was scanned into [facility] and attached to record. gb Administered Medications: 08/19 16:20 Drug: NS 0.9% 1000 ml [sodium chloride 0.9 % intravenous solution] Route: IV; Rate: kc3 bolus; Site: right antecubital; 18:04 Follow up: IV Status: Completed infusion kc3 16:20 Drug: Ondansetron 4 mg [ondansetron HCl 2 mg/mL intravenous solution (2 mL)] Route: kc3 IVP; Site: right antecubital; 18:04 Follow up: Response: No Adverse Reaction kc3 16:20 Drug: ketorolac 30 mg [ketorolac 30 mg/mL (1 mL) injection solution (1 mL)] Route: IVP; kc3 Site: right antecubital; 18:05 Follow up: Response: Pain is unchanged, physician notified kc3 16:30 Drug: Diatrizoate Meglumine & Sodium 10 ml [diatrizoate meglumine and diat.sodium 66 kc3 %-10 % oral solution (10 mL)] Route: PO; 17:00 Drug: Diatrizoate Meglumine & Sodium 10 ml [diatrizoate meglumine and diat.sodium 66 kc3 %-10 % oral solution (10 mL)] Route: PO; 17:39 Drug: Dilaudid - HYDROmorphone 1 mg [hydromorphone 1 mg/mL injection syringe (1 mL)] kc3 Route: IVP; Site: right antecubital; 17:39 Drug: Metoclopramide 10 mg [metoclopramide 5 mg/mL injection solution] Route: IV; Rate: kc3 40 mg/hr; Infused Over: 15 mins; Site: right antecubital; 18:13 Follow up: IV Status: Completed infusion kc3 18:04 Drug: NS 0.9% 1000 ml [sodium chloride 0.9 % intravenous solution] Route: IV; Rate: kc3 bolus; Site: right antecubital; 19:40 Follow up: IV Status: Completed infusion; IV Intake: 1000ml mcp 19:34 Drug: HYDROcodone-acetaminophen 4 pack- 1 packets [hydrocodone 5 mg-acetaminophen 325 mcp mg tablet (1 tabs)] {Co-Signature: af2 (Evelyn Bolivar RN).} Route: PO; 19:43 Drug: Ondansetron ODT 4 mg [ondansetron 4 mg disintegrating tablet (1 tabs)] Route: PO; mcp Intake: 19:40 IV: 1000.00ml; Total: 1000.00ml. mcp Order Results: Lab Order: Amylase; SPEC'M 08/19/16 16:19 Test: AMYLASE; Value: 39; Range: 25-115; Units: U/L; Status: F Lab Order: Basic Metabolic Profile; SPEC'M 08/19/16 16:19 Test: GLUCOSE, FASTING; Value: 121; Range: 70-105; Abnormal: Above high normal; Units: MG/DL; Status: F Test: BLOOD UREA NITROGEN; Value: 25; Range: 7-18; Abnormal: Above high normal; Units: MG/DL; Status: F Test: CREATININE FOR GFR; Value: 1.22; Range: 0.70-1.30; Units: MG/DL; Status: F Test: GLOMERULAR FILTRATION RATE; Value: > 60.0; Range: >60; Status: F Test: SODIUM LEVEL; Value: 134; Range: 136-145; Abnormal: Below low normal; Units: MEQ/L; Status: F Test: POTASSIUM SERUM; Value: 3.7; Range: 3.5-5.1; Units: MEQ/L; Status: F Test: CHLORIDE LEVEL; Value: 98; Range: 98-107; Units: MEQ/L; Status: F Test: CARBON DIOXIDE LEVEL; Value: 25; Range: 21-32; Units: MEQ/L; Status: F Test: ANION GAP; Value: 11; Range: 8-16; Units: MEQ/L; Status: F Test: CALCIUM LEVEL; Value: 9.7; Range: 8.5-10.1; Units: MG/DL; Status: F Test Note: ; Units are mL/min/1.73 m2 Chronic Kidney Disease Staging per NKF: Stage I & II GFR >=60 Normal to Mildly Decreased Stage III GFR 30-59 Moderately Decreased Stage IV GFR 15-29 Severely Decreased Stage V GFR <15 Very Little GFR Left ESRD GFR <15 on MATERIAL DAMAGE APPRAISER Lab Order: CBC with Diff; SPEC'M 08/19/16 16:19 Test: WHITE BLOOD COUNT; Value: 19.2; Range: 4.0-10.0; Abnormal: Above high normal; Units: K/mm3; Status: F Test: RED BLOOD COUNT; Value: 5.66; Range: 4.30-6.10; Units: M/mm3; Status: F Test: HEMOGLOBIN; Value: 17.2; Range: 14.0-18.0; Units: g/dl; Status: F Test: HEMATOCRIT; Value: 47.7; Range: 42.0-52.0; Units: %; Status: F Test: MEAN CORPUSCULAR VOLUME; Value: 84.1; Range: 80.0-96.0; Units: fl; Status: F Test: MEAN CORPUSCULAR HEMOGLOBIN; Value: 30.4; Range: 27.0-33.0; Units: pg; Status: F Test: MEAN CORPUSCULAR HGB CONC; Value: 36.1; Range: 32.0-36.5; Units: g/dl; Status: F Test: RED CELL DISTRIBUTION WIDTH; Value: 13.0; Range: 11.5-14.5; Units: %; Status: F Test: PLATELET COUNT, AUTOMATED; Value: 286; Range: 150-450; Units: k/mm3; Status: F Test: NEUTROPHILS %; Value: 75.4; Range: 36.0-66.0; Abnormal: Above high normal; Units: %; Status: F Test: LYMPH %; Value: 17.3; Range: 24.0-44.0; Abnormal: Below low normal; Units: %; Status: F Test: MONO %; Value: 4.5; Range: 0.0-5.0; Units: %; Status: F Test: EOS %; Value: 0.9; Range: 0.0-3.0; Units: %; Status: F Test: BASO %; Value: 1.0; Range: 0.0-1.0; Units: %; Status: F Test: LARGE UNSTAINED CELL %; Value: 0.9; Range: 0.0-4.0; Units: %; Status: F Test: NEUTROPHILS #; Value: 14.5; Range: 1.8-7.7; Abnormal: Above high normal; Units: K/mm3; Status: F Test: LYMPH #; Value: 3.5; Range: 1.5-4.5; Units: K/mm3; Status: F Test: MONO #; Value: 0.9; Range: 0.0-0.8; Abnormal: Above high normal; Units: K/mm3; Status: F Test: EOS #; Value: 0.2; Range: 0.0-0.50; Units: K/mm3; Status: F Test: BASO #; Value: 0.2; Range: 0.0-0.2; Units: K/mm3; Status: F Test: LARGE UNSTAINED CELL #; Value: 0.2; Range: 0.0-0.4; Units: K/mm3; Status: F Lab Order: Lipase; SPEC'M 08/19/16 16:19 Test: LIPASE; Value: 81; Range: 73-393; Units: U/L; Status: F Lab Order: Liver Profile; SPEC'M 08/19/16 16:19 Test: AST/SGOT; Value: 9; Range: 15-37; Abnormal: Below low normal; Units: U/L; Status: F Test: ALT/SGPT; Value: 21; Range: 12-78; Units: U/L; Status: F Test: ALKALINE PHOSPHATASE; Value: 76; Range: 45-117; Units: U/L; Status: F Test: BILIRUBIN,TOTAL; Value: 0.8; Range: 0.2-1.0; Units: MG/DL; Status: F Test: BILIRUBIN,DIRECT; Value: 0.1; Range: 0.0-0.2; Units: MG/DL; Status: F Test: TOTAL PROTEIN; Value: 8.3; Range: 6.4-8.2; Abnormal: Above high normal; Units: GM/DL; Status: F Test: ALBUMIN; Value: 4.7; Range: 3.2-5.2; Units: GM/DL; Status: F Test: ALBUMIN/GLOBULIN RATIO; Value: 1.31; Range: 1.00-1.93; Status: F Lab Order: Urinalysis; SPEC'M 08/19/16 18:56 Test: APPEARANCE, URINE; Value: CLEAR; Range: CLEAR; Status: F Test: COLOR, URINE; Value: YELLOW; Range: YELLOW; Status: F Test: PH,URINE; Value: 6.0; Range: 5.0-9.0; Units: UNITS; Status: F Test: SPECIFIC GRAVITY URINE AUTO; Value: >1.060; Range: 1.002-1.035; Abnormal: Above high normal; Status: F Test: PROTEIN, URINE AUTO; Value: NEGATIVE; Range: NEGATIVE; Units: mg/dL; Status: F Test: GLUCOSE, URINE (UA) AUTO; Value: NEGATIVE; Range: NEGATIVE; Units: mg/dL; Status: F Test: KETONE, URINE AUTO; Value: TRACE; Range: NEGATIVE; Abnormal: Above high normal; Units: mg/dL; Status: F Test: UROBILINOGEN, URINE AUTO; Value: 0.2; Range: 0.0-2.0; Units: mg/dL; Status: F Test: BILIRUBIN, URINE AUTO; Value: NEGATIVE; Range: NEGATIVE; Status: F Test: NITRITE, URINE AUTO; Value: NEGATIVE; Range: NEGATIVE; Status: F Test: LEUKOCYTE ESTERASE, URINE AUTO; Value: NEGATIVE; Range: NEGATIVE; Status: F Test: BLOOD, URINE BLOOD; Value: NEGATIVE; Range: NEGATIVE; Status: F Test: WBC, URINE AUTO; Value: 1; Range: 0-3; Units: /HPF; Status: F Test: RBC, URINE AUTO; Value: 3; Range: 0-3; Units: /HPF; Status: F Test: BACTERIA, URINE AUTO; Value: NEGATIVE; Range: NEGATIVE; Status: F Test: SQUAMOUS EPITHELIAL CELL UR AU; Value: 0; Range: 0-6; Units: /HPF; Status: F Test: MUCUS, URINE; Value: SMALL; Range: NEGATIVE; Status: F Test: HYALINE CAST, URINE AUTO; Value: 0; Range: 0-1; Units: /LPF; Status: F Test Note: ; >1.060, CONFIRMED WITH REFRACTOMETER. Lab Order: Urine Culture; SPEC'M 08/19/16 18:56 Test: URINE CULTURE; Value: URINE CULTURE RESULT NO GROWTH; Status: F Lab Order: CRP; SPEC'M 08/19/16 16:19 Test: C REACTIVE PROTEIN QUANTITATIV; Value: < 0.30; Range: 0.00-0.30; Units: MG/DL; Status: F Radiology Order: CT ABD & PELVIS: IV and Oral Contrast Test: CT ABD & PELVIS: IV and Oral Contrast REASON FOR EXAMINATION: Biliary Colic; Clinical: Biliary colic.; ; Comparison: 04/22/2015.; ; Technique: Axial contrast enhanced images from the lung bases to the pubic; symphysis using oral and 100 ml Isovue 370 intravenous contrast material with; coronal and sagittal re-formations.; ; Findings:; Lung bases are clear. Visualized heart and pericardium normal.; ; Liver, spleen, pancreas, gallbladder, bilateral adrenal glands and kidneys are; normal. Small incidental area of fatty infiltration adjacent to the ligamentum; teres within the liver appears benign. The enteric system is without; obstruction. Mild mural thickening to the small bowel cannot be excluded and; should be correlated with physical examination to exclude the possibility of; inflammatory bowel disease. Normal cecum and appendix identified in the right; lower quadrant. Pelvis demonstrates normal bladder and age appropriate; prostate/seminal vesicles. No pelvic fluid or ascites. No adenopathy. No free; air. Vasculature is normal. Surrounding musculoskeletal structures are intact.; ; Impression:; Cannot exclude mild diffuse small bowel mural thickening which requires; correlation and raising the possibility of inflammatory bowel disease.; No further acute intra-abdominal or pelvic pathology appreciated.; ; ; Signed by; Daryl Clark MD 08/19/2016 06:12 P; Radiology Order: US Abd Limited Test: US Abd Limited REASON FOR EXAMINATION: Biliary Colic; Clinical: Right upper quadrant pain with nausea and biliary colic.; ; Findings:; Real time lomeli scale ultrasound examination using curved array transducer; demonstrates fatty infiltration to the liver without focal hepatic lesion.; Limited evaluation the pancreas is unremarkable. The gallbladder is normal and; without gallstones, wall thickening, or pericholecystic fluid. No biliary ductal; dilatation is appreciated and the common bile duct measures 3.1 mm diameter.; Right kidney is normal in reniform shape without hydronephrosis and measures 12.0; x 6.7 x 5.6 cm. No ascites in the visualized right upper quadrant.; ; Impression:; Fatty infiltration to the liver.; Normal gallbladder and biliary system.; ; ; Signed by; Daryl Clark MD 08/19/2016 05:04 P; Outcome: 19:18 Discharge ordered by Provider. mo1 19:42 Discharge Assessment: patient administered narcotics - yes. Pt provided with safe mcp discharge. The following High Risk Discharge criteria are identified: None. Discharged to home via wheelchair, with significant other. Condition: stable. Discharge instructions given to patient, Instructed on discharge instructions, follow up and referral plans. medication usage, Demonstrated understanding of instructions, medications, Pt was receptive of discharge instructions/ teaching. Prescriptions given X 2, Work note provided to patient. CT Study completed. Property sent home with patient. 19:43 Patient left the ED. [facility] Signatures: Dispatcher [employer] EDMS Miguel Joya,RN RN Kalyn Cornelius RN RN Mary Anne Germain, Reg Reg Wong Castellon, RN RN Neha Valente, MOUNTER SMOKING PIPE MOUNTER SMOKING PIPE jb5 Alvin Fisher, MOUNTER SMOKING PIPE MOUNTER SMOKING PIPE dd6 René Clancy PA PA mo1 Lisette Lawrence am17 Julia Olea, PA-C PA-C dt4 Evelyn Bolivar,RN RN af2 Philly CartagenaRN RN armando3 Daily Francisco Nicole 2 Evelyn Bolivar RN af2 Chart Complete MTDD
== END 2016-08-19 19:43 | disposition home or self-care (01) ==
LOC: M ED 14:24
DX: R10.11 Right upper quadrant pain (principal); R11.2 Nausea with vomiting, unspecified; K58.9 Irritable bowel syndrome, unspecified; I70.0 Atherosclerosis of aorta; Z88.5 Allergy status to narcotic agent
CPT/HCPCS: 36415; 74177; 76705; 80048; 80076; 81001; 82150; 83690; 85025; 86140; 87086; 96361; 96365; 96375; 99284; J1170; J1885; J2405; J2765; Q9963; Q9967

== ENCOUNTER 2016-10-03 13:25 | Emergency (ER) | payer OTHER ==
[2016-10-03] MEDS ORDERED: KETOROLAC 30 MG/ML VIAL (J1885) As Ordered ONE (15:09)
[2016-10-03] MEDS ORDERED: ONDANSETRON 4MG/2ML VIAL (J2405) As Ordered ONE (15:09)
[2016-10-03 15:29] LABS: BASO # 0.1 K/mm3 (0.0-0.2); BASO % 0.3 % (0.0-1.0); EOS # 0.3 K/mm3 (0.0-0.50); EOS % 1.5 % (0.0-3.0); LARGE UNSTAINED CELL # 0.3 K/mm3 (0.0-0.4); LARGE UNSTAINED CELL % 1.1 % (0.0-4.0); LYMPH # 5.5 K/mm3 (1.5-4.5); LYMPH % 23.4 % (24.0-44.0); MEAN CORPUSCULAR HEMOGLOBIN 30.9 pg (27.0-33.0); MEAN CORPUSCULAR HGB CONC 36.4 g/dl (32.0-36.5); MONO # 1.4 K/mm3 (0.0-0.8); MONO % 6.3 % (0.0-5.0); NEUTROPHILS # 15.1 K/mm3 (1.8-7.7); NEUTROPHILS % 67.3 % (36.0-66.0); PLATELET COUNT, AUTOMATED 307 k/mm3 (150-450); RED CELL DISTRIBUTION WIDTH 12.5 % (11.5-14.5)
[2016-10-03 15:33] LABS: WHITE BLOOD COUNT 22.5 K/mm3 (4.0-10.0)
[2016-10-03 16:25] LABS: ALBUMIN/GLOBULIN RATIO 1.29 (1.00-1.93); ALKALINE PHOSPHATASE 68 U/L (45-117); ALT/SGPT 14 U/L (12-78); ANION GAP 12 MEQ/L (8-16); AST/SGOT 8 U/L (15-37); BILIRUBIN,DIRECT 0.2 MG/DL (0.0-0.2); BILIRUBIN,TOTAL 0.8 MG/DL (0.2-1.0); BLOOD UREA NITROGEN 22 MG/DL (7-18); CALCIUM LEVEL 8.1 MG/DL (8.5-10.1); CARBON DIOXIDE LEVEL 28 MEQ/L (21-32); CHLORIDE LEVEL 93 MEQ/L (98-107); GLOMERULAR FILTRATION RATE > 60.0 (>60); GLUCOSE, FASTING 102 MG/DL (70-105); SODIUM LEVEL 133 MEQ/L (136-145); TOTAL PROTEIN 7.1 GM/DL (6.4-8.2)
--- NOTE | 2016-10-03 16:55 | EDDOCDS ---
Nurse's Notes [facility] Name: Clint Palacio Age: 31 yrs Sex: Male : 1985 Arrival Date: 10/03/2016 Time: 13:25 Bed I5 / M5 Private MD: Sera Villa PA-C Diagnosis: Hypokalemia;Nausea and vomiting;Diarrhea, unspecified Presentation: 10/03 13:28 Presenting complaint: Patient states: "IBS flare up again." Reports "stomach issues" ead since Monday. C/o n/v/d. Adult Sepsis Screening: The patient does not have new or worsening altered mentation. Patient's respiratory rate is less than 22. Systolic blood pressure is greater than 100. Patient has a qSOFA score of 0- Negative Sepsis Screen. Suicide/Homicide risk assessment- the patient denies having any suicidal and/or homicidal ideations and does not present with any other emotional, behavioral or mental health complaints. 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 Transition of care: patient was not received from another setting of care. 13:28 Acuity: RADHA Level 3 ead 13:28 Method Of Arrival: Walkin/Carried/Asstd ead Triage Assessment: 13:31 General: Appears in no apparent distress, comfortable, Behavior is appropriate for age, ead cooperative. Pain: Location: abdomen Pain currently is 5 out of 10 on a pain scale. HIV screening NA for this visit Offered previously. Neurological: No deficits noted. Respiratory: Airway is patent Respiratory effort is even, unlabored. GI: Reports diarrhea, lower abdominal pain, upper abd pain, nausea, vomiting. Derm: Skin is pink, warm & dry. Historical: - Allergies: no known allergies; - Home Meds: 1. Zofran Oral as needed (Last dose: 10/01/2016) 2. [place] 5-325 mg Oral tab every 6 hours (Last dose: 09/28/2016) - PMHx: calcified aortic valve; Irritable bowel syndrome; - PSHx: none; - Social history: Smoking status: Patient states former smoker of tobacco. No barriers to communication noted, The patient speaks fluent Dutch, Speaks appropriately for age. - Family history: Not pertinent. - : The pt / caregiver states he / she is not on anticoagulants. Home medication list is obtained from the patient. - Exposure Risk Screening:: None identified. Screenin:23 Screening information is obtained from the patient. Fall risk: No risks identified. k Assistance ADL's: requires no assistance with activities of daily living. Abuse/DV Screen: The patient / caregiver reports he/she is: not in a situation that causes fear, pain or injury. Nutritional screening: No deficits noted. Advance Directives: Currently, there is no health care proxy. There is no active DNR order. There is no living will. There is no Power of Outside Collector. Advance directive information has not previously been placed in an [facility] medical record. Further advance directive information is declined. home support is adequate. Assessment: 15:23 General: Appears in no apparent distress, skin warm and dry color satisfactory. moist jmk pink oral mucosa. Indicates discomfort to right upper abdomen. ABD is soft and non distended with bowel sounds present x 4. Increased pain with palp to RUQ. GI: Abdomen is Bowel sounds present X 4 quads. Abd is soft X 4 quads Abd is tender to palpation in left upper quadrant. 15:59 General: Appears pain free. IV fluids continue.. k 16:53 General: Appears pain free. receptive to discharge. [facility] Vital Signs: 13:26 BP 137 / 77; Pulse 82; Resp 16; Temp 97.4(O); Pulse Ox 98% ; Weight 113.4 kg (R); lr2 Height 5 ft. 11 in. (180.34 cm) (R); Pain 5/10; 15:55 BP 132 / 76; Pulse 78; Resp 18; Temp 98.4; Pulse Ox 98% ; dls 16:47 BP 111 / 56; Pulse 65; Resp 18; Temp 98.3; Pulse Ox 97% ; Pain 0/10; jam1 13:26 Body Mass Index 34.87 (113.40 kg, 180.34 cm) lr2 Vitals: 13:26 Log In Time: October 03, 2016 at 13:25. lr2 ED Course: 13:26 Patient visited by Veronica Mercado. lr2 13:26 Patient moved to Waiting lr2 13:28 Sera Villa is Private Physician. lr2 13:28 Patient moved to Pre RCE lr2 13:29 Triage Initiated ead 14:40 Patient moved to Triage 1 ar3 14:46 [facility]. cc10 14:46 Santy Mcclelland MD is Attending Physician. cc10 14:56 Patient visited by Devante Ramos PA-C. cc10 14:56 Patient visited by Devante Ramos PA-C. cc10 15:03 Patient moved to I5 / [facility] 15:06 Urinalysis Sent. ar3 15:22 Basic Metabolic Profile Sent. jmk 15:22 CBC with Diff Sent. jmk 15:22 Lipase Sent. jmk 15:22 Liver Profile Sent. jmk 15:23 The patient / caregiver is instructed regarding the plan of care and ED course. jmk 15:23 Inserted saline lock: 20 gauge in left antecubital area. jmk 15:34 [facility] Payment Agreement was scanned into [employer] and attached to record. lg 15:57 Patient visited by Monica Hastings RN. dls 16:01 Lactic Acid ([place] tube on ice) Sent. dls 16:01 -Blood Culture Sent. dls 16:44 Sera Villa is Referral Physician. cc10 16:53 Discontinued lock intact, bleeding controlled, pressure dressing applied, No jmk redness/swelling at site. No procedures done that require assistance. Administered Medications: 15:22 Drug: NS 0.9% 1000 ml Route: IV; Rate: bolus; Site: left antecubital; k 15:22 Drug: Ondansetron 4 mg Route: IVP; Site: left antecubital; k 15:23 Drug: ketorolac 30 mg [ketorolac 30 mg/mL (1 mL) injection solution (1 mL)] Route: IVP; [facility] Site: left antecubital; Order Results: Lab Order: Basic Metabolic Profile; SPEC'M 10/03/16 15:52 Test: GLUCOSE, FASTING; Value: 102; Range: 70-105; Units: MG/DL; Status: F Test: BLOOD UREA NITROGEN; Value: 22; Range: 7-18; Abnormal: Above high normal; Units: MG/DL; Status: F Test: CREATININE FOR GFR; Value: 1.00; Range: 0.70-1.30; Units: MG/DL; Status: F Test: GLOMERULAR FILTRATION RATE; Value: > 60.0; Range: >60; Status: F Test: SODIUM LEVEL; Value: 133; Range: 136-145; Abnormal: Below low normal; Units: MEQ/L; Status: F Test: POTASSIUM SERUM; Value: 3.0; Range: 3.5-5.1; Abnormal: Below low normal; Units: MEQ/L; Status: F Test: CHLORIDE LEVEL; Value: 93; Range: 98-107; Abnormal: Below low normal; Units: MEQ/L; Status: F Test: CARBON DIOXIDE LEVEL; Value: 28; Range: 21-32; Units: MEQ/L; Status: F Test: ANION GAP; Value: 12; Range: 8-16; Units: MEQ/L; Status: F Test: CALCIUM LEVEL; Value: 8.1; Range: 8.5-10.1; Abnormal: Below low normal; Units: MG/DL; Status: F Test Note: ; Units are mL/min/1.73 m2 Chronic Kidney Disease Staging per NKF: Stage I & II GFR >=60 Normal to Mildly Decreased Stage III GFR 30-59 Moderately Decreased Stage IV GFR 15-29 Severely Decreased Stage V GFR <15 Very Little GFR Left ESRD GFR <15 on EMR TRAINER Lab Order: CBC with Diff; SPEC'M 10/03/16 15:19 Test: WHITE BLOOD COUNT; Value: 22.5; Range: 4.0-10.0; Abnormal: Above high normal; Units: K/mm3; Status: F Test: RED BLOOD COUNT; Value: 5.71; Range: 4.30-6.10; Units: M/mm3; Status: F Test: HEMOGLOBIN; Value: 17.7; Range: 14.0-18.0; Units: g/dl; Status: F Test: HEMATOCRIT; Value: 48.5; Range: 42.0-52.0; Units: %; Status: F Test: MEAN CORPUSCULAR VOLUME; Value: 85.0; Range: 80.0-96.0; Units: fl; Status: F Test: MEAN CORPUSCULAR HEMOGLOBIN; Value: 30.9; Range: 27.0-33.0; Units: pg; Status: F Test: MEAN CORPUSCULAR HGB CONC; Value: 36.4; Range: 32.0-36.5; Units: g/dl; Status: F Test: RED CELL DISTRIBUTION WIDTH; Value: 12.5; Range: 11.5-14.5; Units: %; Status: F Test: PLATELET COUNT, AUTOMATED; Value: 307; Range: 150-450; Units: k/mm3; Status: F Test: NEUTROPHILS %; Value: 67.3; Range: 36.0-66.0; Abnormal: Above high normal; Units: %; Status: F Test: LYMPH %; Value: 23.4; Range: 24.0-44.0; Abnormal: Below low normal; Units: %; Status: F Test: MONO %; Value: 6.3; Range: 0.0-5.0; Abnormal: Above high normal; Units: %; Status: F Test: EOS %; Value: 1.5; Range: 0.0-3.0; Units: %; Status: F Test: BASO %; Value: 0.3; Range: 0.0-1.0; Units: %; Status: F Test: LARGE UNSTAINED CELL %; Value: 1.1; Range: 0.0-4.0; Units: %; Status: F Test: NEUTROPHILS #; Value: 15.1; Range: 1.8-7.7; Abnormal: Above high normal; Units: K/mm3; Status: F Test: LYMPH #; Value: 5.5; Range: 1.5-4.5; Abnormal: Above high normal; Units: K/mm3; Status: F Test: MONO #; Value: 1.4; Range: 0.0-0.8; Abnormal: Above high normal; Units: K/mm3; Status: F Test: EOS #; Value: 0.3; Range: 0.0-0.50; Units: K/mm3; Status: F Test: BASO #; Value: 0.1; Range: 0.0-0.2; Units: K/mm3; Status: F Test: LARGE UNSTAINED CELL #; Value: 0.3; Range: 0.0-0.4; Units: K/mm3; Status: F Test Note: ; A Pathologist review of this differential can help in the evaluation of a differential diagnosis. Please order a Pathologist Review (PATHREVCOMP) if deemed necessary. Results are subject to change if a Pathologist Review is performed. A Pathologist review of this differential can help in the evaluation of a differential diagnosis. Please order a Pathologist Review (PATHREVCOMP) if deemed necessary. Results are subject to change if a Pathologist Review is performed. Lab Order: Lipase; SPEC'M 10/03/16 15:52 Test: LIPASE; Value: 71; Range: 73-393; Abnormal: Below low normal; Units: U/L; Status: F Lab Order: Liver Profile; SPEC'M 10/03/16 15:52 Test: AST/SGOT; Value: 8; Range: 15-37; Abnormal: Below low normal; Units: U/L; Status: F Test: ALT/SGPT; Value: 14; Range: 12-78; Units: U/L; Status: F Test: ALKALINE PHOSPHATASE; Value: 68; Range: 45-117; Units: U/L; Status: F Test: BILIRUBIN,TOTAL; Value: 0.8; Range: 0.2-1.0; Units: MG/DL; Status: F Test: BILIRUBIN,DIRECT; Value: 0.2; Range: 0.0-0.2; Units: MG/DL; Status: F Test: TOTAL PROTEIN; Value: 7.1; Range: 6.4-8.2; Units: GM/DL; Status: F Test: ALBUMIN; Value: 4.0; Range: 3.2-5.2; Units: GM/DL; Status: F Test: ALBUMIN/GLOBULIN RATIO; Value: 1.29; Range: 1.00-1.93; Status: F Lab Order: Urinalysis; SPEC'M 10/03/16 15:05 Test: APPEARANCE, URINE; Value: HAZY; Range: CLEAR; Status: F Test: COLOR, URINE; Value: YELLOW; Range: YELLOW; Status: F Test: PH,URINE; Value: 6.0; Range: 5.0-9.0; Units: UNITS; Status: F Test: SPECIFIC GRAVITY URINE AUTO; Value: 1.027; Range: 1.002-1.035; Status: F Test: PROTEIN, URINE AUTO; Value: NEGATIVE; Range: NEGATIVE; Units: mg/dL; Status: F Test: GLUCOSE, URINE (UA) AUTO; Value: NEGATIVE; Range: NEGATIVE; Units: mg/dL; Status: F Test: KETONE, URINE AUTO; Value: 1+; Range: NEGATIVE; Abnormal: Above high normal; Units: mg/dL; Status: F Test: UROBILINOGEN, URINE AUTO; Value: 0.2; Range: 0.0-2.0; Units: mg/dL; Status: F Test: BILIRUBIN, URINE AUTO; Value: NEGATIVE; Range: NEGATIVE; Status: F Test: NITRITE, URINE AUTO; Value: NEGATIVE; Range: NEGATIVE; Status: F Test: LEUKOCYTE ESTERASE, URINE AUTO; Value: NEGATIVE; Range: NEGATIVE; Status: F Test: BLOOD, URINE BLOOD; Value: NEGATIVE; Range: NEGATIVE; Status: F Test: WBC, URINE AUTO; Value: 1; Range: 0-3; Units: /HPF; Status: F Test: RBC, URINE AUTO; Value: 1; Range: 0-3; Units: /HPF; Status: F Test: BACTERIA, URINE AUTO; Value: 1+; Range: NEGATIVE; Abnormal: Above high normal; Status: F Test: SQUAMOUS EPITHELIAL CELL UR AU; Value: 0; Range: 0-6; Units: /HPF; Status: F Test: MUCUS, URINE; Value: SMALL; Range: NEGATIVE; Status: F Test: HYALINE CAST, URINE AUTO; Value: 1; Range: 0-1; Units: /LPF; Status: F Lab Order: Lactic Acid ([place] tube on ice); SPEC'M 10/03/16 15:52 Test: LACTIC ACID SEPSIS PROTOCOL; Value: 1.0; Range: 0.4-2.0; Units: MMOL/L; Status: F Outcome: 16:44 Discharge ordered by Provider. cc10 16:53 Discharge Assessment: Patient awake, alert and oriented x 3. No cognitive and/or k functional deficits noted. Patient verbalized understanding of disposition instructions. patient administered narcotics - no. The following High Risk Discharge criteria are identified: None. Discharged to home ambulatory. Condition: good. Discharge instructions given to patient, Instructed on discharge instructions, follow up and referral plans. medication usage, Demonstrated understanding of instructions, medications, Pt was receptive of discharge instructions/ teaching. Prescriptions given X 2. No special radiology studies were completed. Property :Personal belongings accompany Pt. 16:55 Patient left the ED. [facility] Signatures: Letitia Maxwell RN Miguel PandyaRN Monica Ge RN RN dls Murphy, Jane, BUSINESS TRANSFORMATION MANAGER BUSINESS TRANSFORMATION MANAGER Bossman Gustafson, Reg Reg lg Dulce Carrillo, BUSINESS TRANSFORMATION MANAGER BUSINESS TRANSFORMATION MANAGER ar3 Kelsie Padron,ALLI RN Devante Valdez, PA-C PA-C cc10 Veronica Mercado2 MTDD
--- NOTE | 2016-10-03 16:55 | EDDOCDS ---
Physician Documentation [facility] Name: Clint Palacio Age: 31 yrs Sex: Male : 1985 Arrival Date: 10/03/2016 Time: 13:25 Bed I5 / M5 Private MD: Sera Villa PA-C Disposition: 10/03/16 16:44 Discharged to Home/Self Care. Impression: Nausea and vomiting, Hypokalemia, Diarrhea, unspecified. - Condition is Stable. - Discharge Instructions: Potassium Content of Foods, Viral Gastroenteritis. - Prescriptions for Compazine 10 mg Oral Tablet - take 1 tablet by ORAL route every 8 hours As needed; 20 tablet. Potassium Chloride 10 mEq Oral Tablet - take 1 tablet by ORAL route every 12 hours; 30 tablet. - Work Release Form - 3 day, Medication Reconciliation form. - Follow up: Sera Villa; When: 1 - 2 days; Reason: Wound/Symptom Recheck, Recheck today's complaints, Worsening of conditions, Continuance of care, recheck potassium level. - Problem is an acute exacerbation. - Symptoms are resolved. Historical: - Allergies: no known allergies; - Home Meds: 1. Zofran Oral as needed (Last dose: 10/01/2016) 2. [place] 5-325 mg Oral tab every 6 hours (Last dose: 09/28/2016) - PMHx: calcified aortic valve; Irritable bowel syndrome; - PSHx: none; - Social history: Smoking status: Patient states former smoker of tobacco. No barriers to communication noted, The patient speaks fluent Mohawk, Speaks appropriately for age. - Family history: Not pertinent. - : The pt / caregiver states he / she is not on anticoagulants. Home medication list is obtained from the patient. - Exposure Risk Screening:: None identified. Vital Signs: 10/03 13:26 BP 137 / 77; Pulse 82; Resp 16; Temp 97.4(O); Pulse Ox 98% ; Weight 113.4 kg / 250 lbs lr2 (R); Height 5 ft. 11 in. (180.34 cm) (R); Pain 5/10; 15:55 BP 132 / 76; Pulse 78; Resp 18; Temp 98.4; Pulse Ox 98% ; dls 16:47 BP 111 / 56; Pulse 65; Resp 18; Temp 98.3; Pulse Ox 97% ; Pain 0/10; jam1 13:26 Body Mass Index 34.87 (113.40 kg, 180.34 cm) lr2 MDM: 15:01 NS 0.9% 1000 ml IV at bolus once ordered. cc10 15:01 Ondansetron 4 mg IVP once ordered. cc10 15:01 ketorolac 30 mg IVP once ordered. cc10 15:01 IV Saline Lock ordered. cc10 15:01 Undress patient appropriately for examination ordered. cc10 15:01 Basic Metabolic Profile Ordered. EDMS 15:01 CBC with Diff Ordered. EDMS 15:01 Lipase Ordered. EDMS 15:01 Liver Profile Ordered. EDMS 15:02 Urinalysis Ordered. EDMS 15:02 NOTHING BY MOUTH+DIET ordered. EDMS 15:11 Financial registration complete. lg 15:34 [facility] Payment Agreement was scanned into [employer] and attached to record. lg 15:47 -Blood Culture (Adults Only), peripheral from different site, or from device/port/PICC cc10 etc. if present ordered. 15:47 Vital Signs ordered. cc10 15:48 Lactic Acid ([place] tube on ice) Ordered. EDMS 15:48 -Blood Culture Ordered. EDMS 16:02 -Blood Culture (Adults Only), peripheral from different site, or from device/port/PICC dls etc. if present complete. 16:19 CBC with Diff Reviewed. cc10 16:19 Urinalysis Reviewed. cc10 16:35 Basic Metabolic Profile Reviewed. cc10 16:35 Lipase Reviewed. cc10 16:35 Liver Profile Reviewed. cc10 16:35 Lactic Acid ([place] tube on ice) Reviewed. cc10 Administered Medications: 15:22 Drug: NS 0.9% 1000 ml Route: IV; Rate: bolus; Site: left antecubital; jmk 15:22 Drug: Ondansetron 4 mg Route: IVP; Site: left antecubital; humbertok 15:23 Drug: ketorolac 30 mg [ketorolac 30 mg/mL (1 mL) injection solution (1 mL)] Route: IVP; humbertok Site: left antecubital; Signatures: Dispatcher [employer] EDMS Miguel Joya RN RN jmk Scott, Debra RN Bossman Cochran, Kelsie Ray lg,RN RN Devante Valdez, PAJerryC PAJerryC cc10 The chart was reviewed and I authenticate all verbal orders and agree with the evaluation and treatment provided.Attachments: 15:34 [facility] Payment Agreement lg MTDD
--- NOTE | 2016-10-05 17:56 | EDDOCDS ---
Physician Documentation [facility] Name: Clint Palacio Age: 31 yrs Sex: Male : 1985 Arrival Date: 10/03/2016 Time: 13:25 Bed I5 / M5 Private MD: Sera Villa PA-C Disposition: 10/03/16 16:44 Discharged to Home/Self Care. Impression: Nausea and vomiting, Hypokalemia, Diarrhea, unspecified. - Condition is Stable. - Discharge Instructions: Potassium Content of Foods, Viral Gastroenteritis. - Prescriptions for Compazine 10 mg Oral Tablet - take 1 tablet by ORAL route every 8 hours As needed; 20 tablet. Potassium Chloride 10 mEq Oral Tablet - take 1 tablet by ORAL route every 12 hours; 30 tablet. - Work Release Form - 3 day, Medication Reconciliation form. - Follow up: Sera Villa; When: 1 - 2 days; Reason: Wound/Symptom Recheck, Recheck today's complaints, Worsening of conditions, Continuance of care, recheck potassium level. - Problem is an acute exacerbation. - Symptoms are resolved. Historical: - Allergies: no known allergies; - Home Meds: 1. Zofran Oral as needed (Last dose: 10/01/2016) 2. [place] 5-325 mg Oral tab every 6 hours (Last dose: 09/28/2016) - PMHx: calcified aortic valve; Irritable bowel syndrome; - PSHx: none; - Social history: Smoking status: Patient states former smoker of tobacco. No barriers to communication noted, The patient speaks fluent Faroese, Speaks appropriately for age. - Family history: Not pertinent. - : The pt / caregiver states he / she is not on anticoagulants. Home medication list is obtained from the patient. - Exposure Risk Screening:: None identified. Vital Signs: 10/03 13:26 BP 137 / 77; Pulse 82; Resp 16; Temp 97.4(O); Pulse Ox 98% ; Weight 113.4 kg / 250 lbs lr2 (R); Height 5 ft. 11 in. (180.34 cm) (R); Pain 5/10; 15:55 BP 132 / 76; Pulse 78; Resp 18; Temp 98.4; Pulse Ox 98% ; dls 16:47 BP 111 / 56; Pulse 65; Resp 18; Temp 98.3; Pulse Ox 97% ; Pain 0/10; jam1 13:26 Body Mass Index 34.87 (113.40 kg, 180.34 cm) lr2 MDM: 15:01 NS 0.9% 1000 ml IV at bolus once ordered. cc10 15:01 Ondansetron 4 mg IVP once ordered. cc10 15:01 ketorolac 30 mg IVP once ordered. cc10 15:01 IV Saline Lock ordered. cc10 15:01 Undress patient appropriately for examination ordered. cc10 15:01 Basic Metabolic Profile Ordered. EDMS 15:01 CBC with Diff Ordered. EDMS 15:01 Lipase Ordered. EDMS 15:01 Liver Profile Ordered. EDMS 15:02 Urinalysis Ordered. EDMS 15:02 NOTHING BY MOUTH+DIET ordered. EDMS 15:11 Financial registration complete. lg 15:34 [facility] Payment Agreement was scanned into [employer] and attached to record. lg 15:47 -Blood Culture (Adults Only), peripheral from different site, or from device/port/PICC cc10 etc. if present ordered. 15:47 Vital Signs ordered. cc10 15:48 Lactic Acid ([place] tube on ice) Ordered. EDMS 15:48 -Blood Culture Ordered. EDMS 16:02 -Blood Culture (Adults Only), peripheral from different site, or from device/port/PICC dls etc. if present complete. 16:19 CBC with Diff Reviewed. cc10 16:19 Urinalysis Reviewed. cc10 16:35 Basic Metabolic Profile Reviewed. cc10 16:35 Lipase Reviewed. cc10 16:35 Liver Profile Reviewed. cc10 16:35 Lactic Acid ([place] tube on ice) Reviewed. cc10 Administered Medications: 15:22 Drug: NS 0.9% 1000 ml Route: IV; Rate: bolus; Site: left antecubital; jmk 15:22 Drug: Ondansetron 4 mg Route: IVP; Site: left antecubital; humbertok 15:23 Drug: ketorolac 30 mg [ketorolac 30 mg/mL (1 mL) injection solution (1 mL)] Route: IVP; humbertok Site: left antecubital; Signatures: Dispatcher [employer] EDMS Miguel Joya RN RN jmk Scott, Debra RN Bossman Cochran, Kelsie Ray lg,RN RN eaDevante Layne, PAJerryC PAJerryC cc10 The chart was reviewed and I authenticate all verbal orders and agree with the evaluation and treatment provided.Attachments: 15:34 [facility] Payment Agreement lg Chart Complete MTDD
--- NOTE | 2016-10-05 17:56 | EDDOCDS ---
Nurse's Notes [facility] Name: Clint Palacio Age: 31 yrs Sex: Male : 1985 Arrival Date: 10/03/2016 Time: 13:25 Bed I5 / M5 Private MD: Sera Villa PA-C Diagnosis: Hypokalemia;Nausea and vomiting;Diarrhea, unspecified Presentation: 10/03 13:28 Presenting complaint: Patient states: "IBS flare up again." Reports "stomach issues" ead since Monday. C/o n/v/d. Adult Sepsis Screening: The patient does not have new or worsening altered mentation. Patient's respiratory rate is less than 22. Systolic blood pressure is greater than 100. Patient has a qSOFA score of 0- Negative Sepsis Screen. Suicide/Homicide risk assessment- the patient denies having any suicidal and/or homicidal ideations and does not present with any other emotional, behavioral or mental health complaints. 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 Transition of care: patient was not received from another setting of care. 13:28 Acuity: RADHA Level 3 ead 13:28 Method Of Arrival: Walkin/Carried/Asstd ead Triage Assessment: 13:31 General: Appears in no apparent distress, comfortable, Behavior is appropriate for age, ead cooperative. Pain: Location: abdomen Pain currently is 5 out of 10 on a pain scale. HIV screening NA for this visit Offered previously. Neurological: No deficits noted. Respiratory: Airway is patent Respiratory effort is even, unlabored. GI: Reports diarrhea, lower abdominal pain, upper abd pain, nausea, vomiting. Derm: Skin is pink, warm & dry. Historical: - Allergies: no known allergies; - Home Meds: 1. Zofran Oral as needed (Last dose: 10/01/2016) 2. [place] 5-325 mg Oral tab every 6 hours (Last dose: 09/28/2016) - PMHx: calcified aortic valve; Irritable bowel syndrome; - PSHx: none; - Social history: Smoking status: Patient states former smoker of tobacco. No barriers to communication noted, The patient speaks fluent Bruneian, Speaks appropriately for age. - Family history: Not pertinent. - : The pt / caregiver states he / she is not on anticoagulants. Home medication list is obtained from the patient. - Exposure Risk Screening:: None identified. Screenin:23 Screening information is obtained from the patient. Fall risk: No risks identified. k Assistance ADL's: requires no assistance with activities of daily living. Abuse/DV Screen: The patient / caregiver reports he/she is: not in a situation that causes fear, pain or injury. Nutritional screening: No deficits noted. Advance Directives: Currently, there is no health care proxy. There is no active DNR order. There is no living will. There is no Power of Manager Assurance. Advance directive information has not previously been placed in an [facility] medical record. Further advance directive information is declined. home support is adequate. Assessment: 15:23 General: Appears in no apparent distress, skin warm and dry color satisfactory. moist jmk pink oral mucosa. Indicates discomfort to right upper abdomen. ABD is soft and non distended with bowel sounds present x 4. Increased pain with palp to RUQ. GI: Abdomen is Bowel sounds present X 4 quads. Abd is soft X 4 quads Abd is tender to palpation in left upper quadrant. 15:59 General: Appears pain free. IV fluids continue.. k 16:53 General: Appears pain free. receptive to discharge. [facility] Vital Signs: 13:26 BP 137 / 77; Pulse 82; Resp 16; Temp 97.4(O); Pulse Ox 98% ; Weight 113.4 kg (R); lr2 Height 5 ft. 11 in. (180.34 cm) (R); Pain 5/10; 15:55 BP 132 / 76; Pulse 78; Resp 18; Temp 98.4; Pulse Ox 98% ; dls 16:47 BP 111 / 56; Pulse 65; Resp 18; Temp 98.3; Pulse Ox 97% ; Pain 0/10; jam1 13:26 Body Mass Index 34.87 (113.40 kg, 180.34 cm) lr2 Vitals: 13:26 Log In Time: October 03, 2016 at 13:25. lr2 ED Course: 13:26 Patient visited by Veronica Mercado. lr2 13:26 Patient moved to Waiting lr2 13:28 Sera Villa is Private Physician. lr2 13:28 Patient moved to Pre RCE lr2 13:29 Triage Initiated ead 14:40 Patient moved to Triage 1 ar3 14:46 [facility] cc10 14:46 Santy Mcclelland MD is Attending Physician. cc10 14:56 Patient visited by Devante Ramos PA-C. cc10 14:56 Patient visited by Devante Ramos PA-C. cc10 15:03 Patient moved to I5 / [facility] 15:06 Urinalysis Sent. ar3 15:22 Basic Metabolic Profile Sent. jmk 15:22 CBC with Diff Sent. jmk 15:22 Lipase Sent. jmk 15:22 Liver Profile Sent. jmk 15:23 The patient / caregiver is instructed regarding the plan of care and ED course. jmk 15:23 Inserted saline lock: 20 gauge in left antecubital area. jmk 15:34 [facility] Payment Agreement was scanned into [employer] and attached to record. lg 15:57 Patient visited by Monica Hastings RN. dls 16:01 Lactic Acid (Lofton tube on ice) Sent. dls 16:01 -Blood Culture Sent. dls 16:44 Sera Villa is Referral Physician. cc10 16:53 Discontinued lock intact, bleeding controlled, pressure dressing applied, No jmk redness/swelling at site. No procedures done that require assistance. Administered Medications: 15:22 Drug: NS 0.9% 1000 ml Route: IV; Rate: bolus; Site: left antecubital; k 15:22 Drug: Ondansetron 4 mg Route: IVP; Site: left antecubital; k 15:23 Drug: ketorolac 30 mg [ketorolac 30 mg/mL (1 mL) injection solution (1 mL)] Route: IVP; [facility] Site: left antecubital; Order Results: Lab Order: Basic Metabolic Profile; SPEC'M 10/03/16 15:52 Test: GLUCOSE, FASTING; Value: 102; Range: 70-105; Units: MG/DL; Status: F Test: BLOOD UREA NITROGEN; Value: 22; Range: 7-18; Abnormal: Above high normal; Units: MG/DL; Status: F Test: CREATININE FOR GFR; Value: 1.00; Range: 0.70-1.30; Units: MG/DL; Status: F Test: GLOMERULAR FILTRATION RATE; Value: > 60.0; Range: >60; Status: F Test: SODIUM LEVEL; Value: 133; Range: 136-145; Abnormal: Below low normal; Units: MEQ/L; Status: F Test: POTASSIUM SERUM; Value: 3.0; Range: 3.5-5.1; Abnormal: Below low normal; Units: MEQ/L; Status: F Test: CHLORIDE LEVEL; Value: 93; Range: 98-107; Abnormal: Below low normal; Units: MEQ/L; Status: F Test: CARBON DIOXIDE LEVEL; Value: 28; Range: 21-32; Units: MEQ/L; Status: F Test: ANION GAP; Value: 12; Range: 8-16; Units: MEQ/L; Status: F Test: CALCIUM LEVEL; Value: 8.1; Range: 8.5-10.1; Abnormal: Below low normal; Units: MG/DL; Status: F Test Note: ; Units are mL/min/1.73 m2 Chronic Kidney Disease Staging per NKF: Stage I & II GFR >=60 Normal to Mildly Decreased Stage III GFR 30-59 Moderately Decreased Stage IV GFR 15-29 Severely Decreased Stage V GFR <15 Very Little GFR Left ESRD GFR <15 on IN FLIGHT TECHNICIAN Lab Order: CBC with Diff; SPEC'M 10/03/16 15:19 Test: WHITE BLOOD COUNT; Value: 22.5; Range: 4.0-10.0; Abnormal: Above high normal; Units: K/mm3; Status: F Test: RED BLOOD COUNT; Value: 5.71; Range: 4.30-6.10; Units: M/mm3; Status: F Test: HEMOGLOBIN; Value: 17.7; Range: 14.0-18.0; Units: g/dl; Status: F Test: HEMATOCRIT; Value: 48.5; Range: 42.0-52.0; Units: %; Status: F Test: MEAN CORPUSCULAR VOLUME; Value: 85.0; Range: 80.0-96.0; Units: fl; Status: F Test: MEAN CORPUSCULAR HEMOGLOBIN; Value: 30.9; Range: 27.0-33.0; Units: pg; Status: F Test: MEAN CORPUSCULAR HGB CONC; Value: 36.4; Range: 32.0-36.5; Units: g/dl; Status: F Test: RED CELL DISTRIBUTION WIDTH; Value: 12.5; Range: 11.5-14.5; Units: %; Status: F Test: PLATELET COUNT, AUTOMATED; Value: 307; Range: 150-450; Units: k/mm3; Status: F Test: NEUTROPHILS %; Value: 67.3; Range: 36.0-66.0; Abnormal: Above high normal; Units: %; Status: F Test: LYMPH %; Value: 23.4; Range: 24.0-44.0; Abnormal: Below low normal; Units: %; Status: F Test: MONO %; Value: 6.3; Range: 0.0-5.0; Abnormal: Above high normal; Units: %; Status: F Test: EOS %; Value: 1.5; Range: 0.0-3.0; Units: %; Status: F Test: BASO %; Value: 0.3; Range: 0.0-1.0; Units: %; Status: F Test: LARGE UNSTAINED CELL %; Value: 1.1; Range: 0.0-4.0; Units: %; Status: F Test: NEUTROPHILS #; Value: 15.1; Range: 1.8-7.7; Abnormal: Above high normal; Units: K/mm3; Status: F Test: LYMPH #; Value: 5.5; Range: 1.5-4.5; Abnormal: Above high normal; Units: K/mm3; Status: F Test: MONO #; Value: 1.4; Range: 0.0-0.8; Abnormal: Above high normal; Units: K/mm3; Status: F Test: EOS #; Value: 0.3; Range: 0.0-0.50; Units: K/mm3; Status: F Test: BASO #; Value: 0.1; Range: 0.0-0.2; Units: K/mm3; Status: F Test: LARGE UNSTAINED CELL #; Value: 0.3; Range: 0.0-0.4; Units: K/mm3; Status: F Test Note: ; A Pathologist review of this differential can help in the evaluation of a differential diagnosis. Please order a Pathologist Review (PATHREVCOMP) if deemed necessary. Results are subject to change if a Pathologist Review is performed. A Pathologist review of this differential can help in the evaluation of a differential diagnosis. Please order a Pathologist Review (PATHREVCOMP) if deemed necessary. Results are subject to change if a Pathologist Review is performed. Lab Order: Lipase; SPEC'M 10/03/16 15:52 Test: LIPASE; Value: 71; Range: 73-393; Abnormal: Below low normal; Units: U/L; Status: F Lab Order: Liver Profile; SPEC'M 10/03/16 15:52 Test: AST/SGOT; Value: 8; Range: 15-37; Abnormal: Below low normal; Units: U/L; Status: F Test: ALT/SGPT; Value: 14; Range: 12-78; Units: U/L; Status: F Test: ALKALINE PHOSPHATASE; Value: 68; Range: 45-117; Units: U/L; Status: F Test: BILIRUBIN,TOTAL; Value: 0.8; Range: 0.2-1.0; Units: MG/DL; Status: F Test: BILIRUBIN,DIRECT; Value: 0.2; Range: 0.0-0.2; Units: MG/DL; Status: F Test: TOTAL PROTEIN; Value: 7.1; Range: 6.4-8.2; Units: GM/DL; Status: F Test: ALBUMIN; Value: 4.0; Range: 3.2-5.2; Units: GM/DL; Status: F Test: ALBUMIN/GLOBULIN RATIO; Value: 1.29; Range: 1.00-1.93; Status: F Lab Order: Urinalysis; SPEC'M 10/03/16 15:05 Test: APPEARANCE, URINE; Value: HAZY; Range: CLEAR; Status: F Test: COLOR, URINE; Value: YELLOW; Range: YELLOW; Status: F Test: PH,URINE; Value: 6.0; Range: 5.0-9.0; Units: UNITS; Status: F Test: SPECIFIC GRAVITY URINE AUTO; Value: 1.027; Range: 1.002-1.035; Status: F Test: PROTEIN, URINE AUTO; Value: NEGATIVE; Range: NEGATIVE; Units: mg/dL; Status: F Test: GLUCOSE, URINE (UA) AUTO; Value: NEGATIVE; Range: NEGATIVE; Units: mg/dL; Status: F Test: KETONE, URINE AUTO; Value: 1+; Range: NEGATIVE; Abnormal: Above high normal; Units: mg/dL; Status: F Test: UROBILINOGEN, URINE AUTO; Value: 0.2; Range: 0.0-2.0; Units: mg/dL; Status: F Test: BILIRUBIN, URINE AUTO; Value: NEGATIVE; Range: NEGATIVE; Status: F Test: NITRITE, URINE AUTO; Value: NEGATIVE; Range: NEGATIVE; Status: F Test: LEUKOCYTE ESTERASE, URINE AUTO; Value: NEGATIVE; Range: NEGATIVE; Status: F Test: BLOOD, URINE BLOOD; Value: NEGATIVE; Range: NEGATIVE; Status: F Test: WBC, URINE AUTO; Value: 1; Range: 0-3; Units: /HPF; Status: F Test: RBC, URINE AUTO; Value: 1; Range: 0-3; Units: /HPF; Status: F Test: BACTERIA, URINE AUTO; Value: 1+; Range: NEGATIVE; Abnormal: Above high normal; Status: F Test: SQUAMOUS EPITHELIAL CELL UR AU; Value: 0; Range: 0-6; Units: /HPF; Status: F Test: MUCUS, URINE; Value: SMALL; Range: NEGATIVE; Status: F Test: HYALINE CAST, URINE AUTO; Value: 1; Range: 0-1; Units: /LPF; Status: F Lab Order: Lactic Acid ([place]fton tube on ice); SPEC'M 10/03/16 15:52 Test: LACTIC ACID SEPSIS PROTOCOL; Value: 1.0; Range: 0.4-2.0; Units: MMOL/L; Status: F Lab Order: -Blood Culture; SPEC'M 10/03/16 15:52 Test: BLOOD CULTURE; Value: No growth after 24 hours . All specimens observed; Status: F Test: BLOOD CULTURE; Value: for 5 days. Results final at that time.; Status: F Test: BLOOD CULTURE; Value: No Growth after 48 hours. All Specimens observed; Status: F Test: BLOOD CULTURE; Value: for 7 days. Results final at that time.; Status: F Outcome: 16:44 Discharge ordered by Provider. cc10 16:53 Discharge Assessment: Patient awake, alert and oriented x 3. No cognitive and/or jmk functional deficits noted. Patient verbalized understanding of disposition instructions. patient administered narcotics - no. The following High Risk Discharge criteria are identified: None. Discharged to home ambulatory. Condition: good. Discharge instructions given to patient, Instructed on discharge instructions, follow up and referral plans. medication usage, Demonstrated understanding of instructions, medications, Pt was receptive of discharge instructions/ teaching. Prescriptions given X 2. No special radiology studies were completed. Property :Personal belongings accompany Pt. 16:55 Patient left the ED. ashtyn Signatures: Letitia Maxwell, RN RN Miguel Wharton,RN RN Monica Farris RN RN Libertad Farah, DRAPERY HEMMER AUTOMATIC DRAPERY HEMMER AUTOMATIC jam1 Bossman Hernández, Reg Reg lg Dulce Carrillo, DRAPERY HEMMER AUTOMATIC DRAPERY HEMMER AUTOMATIC ar3 Kelsie Padron,RN RN Devante Valdez, PA-C PA-C cc10 Veronica Mercado2 Chart Complete MTDD
--- NOTE | 2016-10-05 17:56 | EDDOCDS ---
Physician Documentation [facility] Name: Clint Palacio Age: 31 yrs Sex: Male : 1985 Arrival Date: 10/03/2016 Time: 13:25 Bed I5 / M5 Private MD: Sera Villa PA-C Disposition: 10/03/16 16:44 Discharged to Home/Self Care. Impression: Nausea and vomiting, Hypokalemia, Diarrhea, unspecified. - Condition is Stable. - Discharge Instructions: Potassium Content of Foods, Viral Gastroenteritis. - Prescriptions for Compazine 10 mg Oral Tablet - take 1 tablet by ORAL route every 8 hours As needed; 20 tablet. Potassium Chloride 10 mEq Oral Tablet - take 1 tablet by ORAL route every 12 hours; 30 tablet. - Work Release Form - 3 day, Medication Reconciliation form. - Follow up: Sera Villa; When: 1 - 2 days; Reason: Wound/Symptom Recheck, Recheck today's complaints, Worsening of conditions, Continuance of care, recheck potassium level. - Problem is an acute exacerbation. - Symptoms are resolved. Historical: - Allergies: no known allergies; - Home Meds: 1. Zofran Oral as needed (Last dose: 10/01/2016) 2. [place] 5-325 mg Oral tab every 6 hours (Last dose: 09/28/2016) - PMHx: calcified aortic valve; Irritable bowel syndrome; - PSHx: none; - Social history: Smoking status: Patient states former smoker of tobacco. No barriers to communication noted, The patient speaks fluent Croatian, Speaks appropriately for age. - Family history: Not pertinent. - : The pt / caregiver states he / she is not on anticoagulants. Home medication list is obtained from the patient. - Exposure Risk Screening:: None identified. Vital Signs: 10/03 13:26 BP 137 / 77; Pulse 82; Resp 16; Temp 97.4(O); Pulse Ox 98% ; Weight 113.4 kg / 250 lbs lr2 (R); Height 5 ft. 11 in. (180.34 cm) (R); Pain 5/10; 15:55 BP 132 / 76; Pulse 78; Resp 18; Temp 98.4; Pulse Ox 98% ; dls 16:47 BP 111 / 56; Pulse 65; Resp 18; Temp 98.3; Pulse Ox 97% ; Pain 0/10; jam1 13:26 Body Mass Index 34.87 (113.40 kg, 180.34 cm) lr2 MDM: 15:01 NS 0.9% 1000 ml IV at bolus once ordered. cc10 15:01 Ondansetron 4 mg IVP once ordered. cc10 15:01 ketorolac 30 mg IVP once ordered. cc10 15:01 IV Saline Lock ordered. cc10 15:01 Undress patient appropriately for examination ordered. cc10 15:01 Basic Metabolic Profile Ordered. EDMS 15:01 CBC with Diff Ordered. EDMS 15:01 Lipase Ordered. EDMS 15:01 Liver Profile Ordered. EDMS 15:02 Urinalysis Ordered. EDMS 15:02 NOTHING BY MOUTH+DIET ordered. EDMS 15:11 Financial registration complete. lg 15:34 [facility] Payment Agreement was scanned into [employer] and attached to record. lg 15:47 -Blood Culture (Adults Only), peripheral from different site, or from device/port/PICC cc10 etc. if present ordered. 15:47 Vital Signs ordered. cc10 15:48 Lactic Acid (Lofton tube on ice) Ordered. EDMS 15:48 -Blood Culture Ordered. EDMS 16:02 -Blood Culture (Adults Only), peripheral from different site, or from device/port/PICC dls etc. if present complete. 16:19 CBC with Diff Reviewed. cc10 16:19 Urinalysis Reviewed. cc10 16:35 Basic Metabolic Profile Reviewed. cc10 16:35 Lipase Reviewed. cc10 16:35 Liver Profile Reviewed. cc10 16:35 Lactic Acid (Lofton tube on ice) Reviewed. cc10 Administered Medications: 15:22 Drug: NS 0.9% 1000 ml Route: IV; Rate: bolus; Site: left antecubital; jmk 15:22 Drug: Ondansetron 4 mg Route: IVP; Site: left antecubital; humbertok 15:23 Drug: ketorolac 30 mg [ketorolac 30 mg/mL (1 mL) injection solution (1 mL)] Route: IVP; humbertok Site: left antecubital; Signatures: Dispatcher [employer] EDMS Miguel Joya RN RN jmk Scott, Debra RN Bossman Cochran, Kelsie Ray lg,RN RN eaDevante Layne, PAJerryC PAJerryC cc10 The chart was reviewed and I authenticate all verbal orders and agree with the evaluation and treatment provided.Attachments: 15:34 [facility] Payment Agreement lg Chart Complete MTDD
== END 2016-10-03 16:55 | disposition home or self-care (01) ==
LOC: M ED 13:25
DX: E87.6 Hypokalemia (principal); R11.2 Nausea with vomiting, unspecified; K58.0 Irritable bowel syndrome with diarrhea; I35.8 Other nonrheumatic aortic valve disorders; Z87.891 Personal history of nicotine dependence; Z79.891 Long term (current) use of opiate analgesic
CPT/HCPCS: 80048; 80076; 81001; 83605; 83690; 85025; 87040; 96374; 96375; 99284; J1885; J2405

== ENCOUNTER → 2016-10-26 | Outpatient (CLI) | payer OTHER ==
[~2016-10-26] MED LIST: DICY20TA11 PO; E-Z PAQUE 60% w/v SUSP 355ML BOTTLE As Ordered ONE; OMEP40CA2 PO; ZOFR20TA PO
--- NOTE | 2016-10-26 16:23 | REP ---
SMALL BOWEL FOLLOW-THROUGH: The procedure was performed under the direct supervision of Dr. Lofton. The images were reviewed with Dr. Lofton. The educational audiologist film shows no organomegaly or pathological masses. The intestinal gas pattern is nonspecific. Liquid barium was administered and the barium column was followed through the small bowel to the level of the terminal ileum. Small bowel transit time is approximately 2 hours and 20 minutes. During fluoroscopy gentle palpation shows all loops are freely movable and pliable. There are no fixed or angulated loops. The small bowel mucosal pattern is normal in course and caliber. There is no transition to suggest a partial small bowel obstruction. Spot filming of terminal ileum shows it to be unremarkable. IMPRESSION: Small bowel follow through examination within normal limits. 2 minutes and 39 seconds of fluoroscopy time was utilized for this procedure. Reviewed by GUILHERME James 10/27/2016 04:18 PEdited and Signed by Yfn Lofton MD 10/28/2016 01:12 P
== END ==
LOC: M RAD 10:03
PROVIDERS: ATTEND Internal Medicine Gastroenterology
DX: K58.0 Irritable bowel syndrome with diarrhea (principal)

== ENCOUNTER → 2016-10-27 | Outpatient (CLI) | payer OTHER ==
[~2016-10-27] MED LIST changes: -E-Z PAQUE 60% w/v SUSP 355ML BOTTLE As Ordered ONE; +LIDOCAINE 2% INJ 100 MG/5 ML SDV (FOR ANES.) As Ordered ONE; +NS 1,000 ML IV SCH; +PROPOFOL 200 MG/20 ML VIAL As Ordered ONE
[2016-10-27 11:38] LABS: FREE T4 1.07 NG/DL (0.76-1.46)
[2016-10-31 15:55] VITALS: BP 109/59
== END | disposition home or self-care (01) ==
LOC: M LAB 10:20
PROVIDERS: ATTEND Internal Medicine Gastroenterology
DX: K58.0 Irritable bowel syndrome with diarrhea (principal)

== ENCOUNTER → 2016-10-29 | Outpatient (REF) | payer OTHER ==
[~2016-10-29] MED LIST changes: -LIDOCAINE 2% INJ 100 MG/5 ML SDV (FOR ANES.) As Ordered ONE; -NS 1,000 ML IV SCH; -PROPOFOL 200 MG/20 ML VIAL As Ordered ONE
== END ==
LOC: M LAB 11:27
PROVIDERS: ATTEND Internal Medicine Gastroenterology
DX: K58.0 Irritable bowel syndrome with diarrhea (principal)

== ENCOUNTER → 2016-10-31 | Outpatient (CLI) | payer OTHER ==
--- NOTE | 2016-10-31 15:24 | ROOR ---
Patient Name: Clint Palacio Procedure Date: 10/31/2016 3:10 PM Date of : 1985 Age: 31 Room: [facility] Gender: Male Note Status: Finalized Procedure: Upper GI endoscopy Indications: Suspected irritable bowel syndrome, Nausea, Weight loss Providers: Wong HORN MD Referring MD: BIBIANA Montaño PA-C Requesting Provider: Medicines: Monitored Anesthesia Care Complications: No immediate complications. Procedure: Pre-Anesthesia Assessment: - The heart rate, respiratory rate, oxygen saturations, blood pressure, adequacy of pulmonary ventilation, and response to care were monitored throughout the procedure. The Endoscope was introduced through the mouth, and advanced to the third part of duodenum. The upper GI endoscopy was accomplished without difficulty. The patient tolerated the procedure well. Findings: The esophagus was normal. The stomach was normal. The examined duodenum was normal. Biopsies for histology were taken with a cold forceps for evaluation of celiac disease. Impression: - Normal esophagus. - Minimal hiatal hernia, Normal stomach. - Normal examined duodenum. Biopsied. Recommendation: - Continue present medications. - Telephone endoscopist for pathology results in 2 weeks. Wong Horn MD Wong HORN MD 10/31/2016 3:23:54 PM This report has been signed electronically. Number of Addenda: 0 Note Initiated On: 10/31/2016 3:10 PM Estimated Blood Loss: Estimated blood loss: none.
--- NOTE | 2016-10-31 15:36 | ROOR ---
Patient Name: Clint Palacio Procedure Date: 10/31/2016 3:23 PM Date of : 1985 Age: 31 Room: [facility] Gender: Male Note Status: Finalized Procedure: Colonoscopy Indications: Generalized abdominal pain, Clinically significant diarrhea of unexplained origin, Suspected irritable bowel syndrome Providers: Wong HORN MD Referring MD: BIBIANA Montaño PA-C Requesting Provider: Medicines: Monitored Anesthesia Care Complications: No immediate complications. Procedure: Pre-Anesthesia Assessment: - The heart rate, respiratory rate, oxygen saturations, blood pressure, adequacy of pulmonary ventilation, and response to care were monitored throughout the procedure. The Colonoscope was introduced through the anus and advanced to 5 cm into the ileum. The colonoscopy was performed without difficulty. The patient tolerated the procedure well. The quality of the bowel preparation was good. Findings: The perianal and digital rectal examinations were normal. The terminal ileum appeared normal. The colon (entire examined portion) appeared normal. Biopsies for histology were taken with a cold forceps for evaluation of microscopic colitis. (Exam: Complete, Prep: Good or Excellent.) Impression: - The examined portion of the ileum was normal. - The entire colon is normal. Biopsied. - Irritable bowel syndrome. Recommendation: - Use fiber, for example Citrucel, Fibercon, Konsyl or Metamucil. - Continue present medications. - Await pathology results. - Telephone endoscopist for pathology results in 2 weeks. - depending on results of dicyclomine, Consideration may be given to a trial on Amitriptyline 25-50 mg at bedtime Wong Horn MD Wong HORN MD 10/31/2016 3:36:02 PM This report has been signed electronically. Number of Addenda: 0 Note Initiated On: 10/31/2016 3:23 PM Estimated Blood Loss: Estimated blood loss: none.
== END ==
LOC: M SDC 13:12 → EDSTATUS 13:13 → M OPP 13:14
PROVIDERS: ATTEND Internal Medicine Gastroenterology
DX: R10.84 Generalized abdominal pain (principal); R19.7 Diarrhea, unspecified; R11.0 Nausea; R63.4 Abnormal weight loss; R01.1 Cardiac murmur, unspecified; I35.8 Other nonrheumatic aortic valve disorders; K21.9 Gastro-esophageal reflux disease without esophagitis; F41.9 Anxiety disorder, unspecified; F14.10 Cocaine abuse, uncomplicated; F12.10 Cannabis abuse, uncomplicated; K58.9 Irritable bowel syndrome, unspecified; Z79.899 Other long term (current) drug therapy

== ENCOUNTER → 2016-11-18 | Outpatient (REF) | payer OTHER ==
[2016-11-18 17:38] LABS: THYROID PEROXIDASE ANTIBODY < 28.0 U/ML (<60.0)
[2016-11-18 17:45] LABS: FREE T4 1.08 NG/DL (0.76-1.46)
== END ==
LOC: M SFHCSACK 09:29
PROVIDERS: ATTEND Physician Assistant
DX: R94.6 Abnormal results of thyroid function studies (principal)

== ENCOUNTER 2016-12-06 19:56 | Emergency (ER) | payer OTHER ==
[~2016-12-06] VITALS: Ht 180.3 cm; Wt 108.9 kg
[2016-12-06] MEDS ORDERED: METOCLOPRAMIDE INJ 10MG/2ML VIAL (J2765) IV ONE (21:45)
[2016-12-06] MEDS ORDERED: KETOROLAC 30 MG/ML VIAL (J1885) IV ONE (21:45)
[2016-12-06] MEDS ORDERED: NS 1,000 ML IV ONE (21:45)
[2016-12-06] MEDS ORDERED: DICYCLOMINE INJ 20MG/2ML (J0500) IM ONE (21:45)
[2016-12-06 22:10] LABS: BASO % 0.1 % (0.0-1.0); EOS # 0.1 K/mm3 (0.0-0.50); EOS % 0.8 % (0.0-3.0); LARGE UNSTAINED CELL # 0.1 K/mm3 (0.0-0.4); LARGE UNSTAINED CELL % 0.7 % (0.0-4.0); LYMPH # 2.3 K/mm3 (1.5-4.5); LYMPH % 14.5 % (24.0-44.0); MEAN CORPUSCULAR HEMOGLOBIN 30.9 pg (27.0-33.0); MEAN CORPUSCULAR VOLUME 88.3 fl (80.0-96.0); MONO # 0.6 K/mm3 (0.0-0.8); MONO % 3.7 % (0.0-5.0); NEUTROPHILS # 12.3 K/mm3 (1.8-7.7); NEUTROPHILS % 80.1 % (36.0-66.0); PLATELET COUNT, AUTOMATED 252 k/mm3 (150-450); RED CELL DISTRIBUTION WIDTH 12.9 % (11.5-14.5); WHITE BLOOD COUNT 15.4 K/mm3 (4.0-10.0)
[2016-12-06 22:31] LABS: ALBUMIN 4.4 GM/DL (3.2-5.2); ALBUMIN/GLOBULIN RATIO 1.19 (1.00-1.93); ALKALINE PHOSPHATASE 73 U/L (45-117); ALT/SGPT 19 U/L (12-78); ANION GAP 11 MEQ/L (8-16); AST/SGOT 8 U/L (15-37); BILIRUBIN,DIRECT 0.2 MG/DL (0.0-0.2); BILIRUBIN,TOTAL 0.9 MG/DL (0.2-1.0); BLOOD UREA NITROGEN 20 MG/DL (7-18); CALCIUM LEVEL 9.4 MG/DL (8.5-10.1); CARBON DIOXIDE LEVEL 23 MEQ/L (21-32); CHLORIDE LEVEL 102 MEQ/L (98-107); CREATININE FOR GFR 0.96 MG/DL (0.70-1.30); GLOMERULAR FILTRATION RATE > 60.0 (>60); GLUCOSE, FASTING 127 MG/DL (70-105); POTASSIUM SERUM 3.6 MEQ/L (3.5-5.1); SODIUM LEVEL 136 MEQ/L (136-145); TOTAL PROTEIN 8.1 GM/DL (6.4-8.2)
[2016-12-06] MEDS ORDERED: NS 500 ML IV ONE (23:45)
[2016-12-07] MEDS ORDERED: MORPHINE 4 MG/ML 1ML SYRINGE IV ONE (00:30)
[2016-12-07] MEDS ORDERED: ONDANSETRON 4MG/2ML VIAL (J2405) IV ONE (00:30)
--- NOTE | 2016-12-07 00:30 | REPUSA ---
CLINICAL HISTORY: RUQ pain. TECHNIQUE: Realtime sonographic images were obtained in multiple projections. COMMENTS: The visualized liver is of uniform echo texture without evidence of mass or defect. There is no intra or extrahepatic biliary ductal dilatation. The common bile duct measures 4.4 mm. The gallbladder is physiologically distended without evidence of calculi. The gallbladder wall is not thickened and the re is no pericholecystic fluid. There is a right extrarenal pelvis. The right kidney measures 11.7x5.7x5.4 cm. The visualized portions of the pancreas are unremarkable. IMPRESSION: No evidence of cholelithiasis or cholecystitis. No acute pathology is identified since the prior exam on 08/19/2016. Thank you for your kind referral of this patient.
[2016-12-07 00:51] VITALS: BP 160/97
--- NOTE | 2016-12-07 01:11 | REP ---
Clinical: Right-sided abdominal pain. Technique: Two supine views of the abdomen and pelvis. Findings: Nonspecific bowel gas pattern. No organomegaly. No abnormal calcifications. Skeletal structures demonstrate age-related changes. Impression: Nonspecific bowel gas pattern. Signed by Daryl Clark MD 12/07/2016 01:02 A
== END 2016-12-07 01:00 | disposition home or self-care (01) ==
LOC: M ED 21:17
DX: E86.0 Dehydration (principal); K58.9 Irritable bowel syndrome, unspecified; R10.9 Unspecified abdominal pain
CPT/HCPCS: 74000; 76705; 80048; 80076; 85025; 96361; 96372; 96374; 96375; 99283; J0500; J1885; J2405; J2765

== ENCOUNTER → 2017-12-08 | Outpatient (CLI) | payer OTHER ==
[2017-12-08 17:02] LABS: TOTAL T3 101.7 NG/DL (60.0-181.0)
[2017-12-08 17:05] LABS: T UPTAKE 35 % (33-40)
[2017-12-08 17:05] LABS: THYROID STIMULATING HORMONE 0.598 uIU/ML (0.358-3.740); THYROXINE (T4) 12.2 UG/DL (4.5-12.0)
[2017-12-12 08:11] LABS: THYROID BINDING GLOBULIN 23 ug/mL (13-39)
[2017-12-12 08:11] LABS: THYROID STIMULATING IMMUNOGLOB <0.10 IU/L (0.00-0.55)
== END ==
LOC: M WUC 13:06
DX: R94.6 Abnormal results of thyroid function studies (principal)
CPT/HCPCS: 84443

== ENCOUNTER → 2018-01-05 | Outpatient (CLI) | payer OTHER ==
[2018-01-05 14:01] LABS: ALBUMIN 4.1 GM/DL (3.2-5.2); ALBUMIN/GLOBULIN RATIO 1.52 (1.00-1.93); ALKALINE PHOSPHATASE 77 U/L (45-117); ALT/SGPT 30 U/L (12-78); ANION GAP 3 MEQ/L (8-16); AST/SGOT 11 U/L (7-37); BASO % 0.4 % (0.0-1.0); BILIRUBIN,TOTAL 0.5 MG/DL (0.2-1.0); BLOOD UREA NITROGEN 12 MG/DL (7-18); CALCIUM LEVEL 9.2 MG/DL (8.5-10.1); CARBON DIOXIDE LEVEL 32 MEQ/L (21-32); CHLORIDE LEVEL 107 MEQ/L (98-107); EOS # 0.3 10^3/uL (0.0-0.50); EOS % 3.2 % (0.0-3.0); GLOMERULAR FILTRATION RATE > 60.0 (>60); GLUCOSE, FASTING 103 MG/DL (70-100); HEMATOCRIT 43.1 % (42.0-52.0); HEMOGLOBIN 15.3 g/dl (13.5-17.5); IMMATURE GRANULOCYTE % 0.4 % (0-3.0); LYMPH # 2.7 10^3/uL (1.5-4.5); LYMPH % 30.2 % (24.0-44.0); MEAN CORPUSCULAR HEMOGLOBIN 31.3 pg (27.0-33.0); MEAN CORPUSCULAR HGB CONC 35.5 g/dl (32.0-36.5); MEAN CORPUSCULAR VOLUME 88.1 fl (80.0-96.0); MONO # 0.6 10^3/uL (0.0-0.8); NEUTROPHILS # 5.3 10^3/uL (1.8-7.7); NEUTROPHILS % 58.8 % (36.0-66.0); PLATELET COUNT, AUTOMATED 205 10^3/uL (150-450); POTASSIUM SERUM 4.6 MEQ/L (3.5-5.1); RED BLOOD COUNT 4.89 10^6/uL (4.30-6.10); RED CELL DISTRIBUTION WIDTH 13.1 % (11.5-14.5); SODIUM LEVEL 142 MEQ/L (136-145); TOTAL PROTEIN 6.8 GM/DL (6.4-8.2)
[2018-01-05 14:09] LABS: TOTAL 25(OH) VITAMIN D 16.5 NG/ML (30.0-100.0)
[2018-01-05 14:42] LABS: ESTIMATED AVERAGE GLUCOSE 103 MG/DL (60-110); HEMOGLOBIN A1c 5.2 %
== END ==
LOC: M WUC 10:06
DX: K21.9 Gastro-esophageal reflux disease without esophagitis (principal); R73.09 Other abnormal glucose
CPT/HCPCS: 80053

== ENCOUNTER → 2018-05-07 | Outpatient (CLI) | payer OTHER ==
[2018-05-07 12:42] LABS: BASO # 0.1 10^3/uL (0.0-0.2); BASO % 0.5 % (0.0-1.0); EOS # 0.4 10^3/uL (0.0-0.50); EOS % 3.9 % (0.0-3.0); HEMATOCRIT 42.7 % (42.0-52.0); HEMOGLOBIN 15.1 g/dl (13.5-17.5); IMMATURE GRANULOCYTE % 0.4 % (0-3.0); LYMPH # 3.4 10^3/uL (1.5-4.5); LYMPH % 31.3 % (24.0-44.0); MEAN CORPUSCULAR HEMOGLOBIN 31.1 pg (27.0-33.0); MEAN CORPUSCULAR HGB CONC 35.4 g/dl (32.0-36.5); MONO # 0.7 10^3/uL (0.0-0.8); MONO % 6.9 % (0.0-5.0); NEUTROPHILS # 6.2 10^3/uL (1.8-7.7); PLATELET COUNT, AUTOMATED 224 10^3/uL (150-450); RED BLOOD COUNT 4.85 10^6/uL (4.30-6.10); RED CELL DISTRIBUTION WIDTH 12.7 % (11.5-14.5); WHITE BLOOD COUNT 10.8 10^3/uL (4.0-10.0)
[2018-05-07 13:26] LABS: ANION GAP 6 MEQ/L (8-16); BLOOD UREA NITROGEN 16 MG/DL (7-18); CALCIUM LEVEL 8.7 MG/DL (8.5-10.1); CARBON DIOXIDE LEVEL 29 MEQ/L (21-32); CHLORIDE LEVEL 106 MEQ/L (98-107); CREATININE FOR GFR 0.92 MG/DL (0.70-1.30); GLOMERULAR FILTRATION RATE > 60.0 (>60); GLUCOSE, FASTING 100 MG/DL (70-100); POTASSIUM SERUM 4.4 MEQ/L (3.5-5.1); SODIUM LEVEL 141 MEQ/L (136-145)
== END ==
LOC: M LAB 12:12
DX: I25.10 Atherosclerotic heart disease of native coronary artery without angina pectoris (principal)
CPT/HCPCS: 80048

== ENCOUNTER → 2018-07-12 | Outpatient (CLI) | payer OTHER ==
[2018-07-12 14:58] LABS: INR 1.14; PROTHROMBIN TIME 14.8 SECONDS (12.1-14.4)
== END ==
LOC: M LAB 13:53
DX: Z95.2 Presence of prosthetic heart valve (principal)
CPT/HCPCS: 71046

== ENCOUNTER → 2019-12-11 | Outpatient (CLI) | payer BC ==
[~2019-12-11] MED LIST changes: -OMEP40CA2 PO; +OMEP40CA97 PO; -ZOFR20TA PO; +ZOFR4TAB16 PO
--- NOTE | 2019-12-11 15:54 | REP ---
BILATERAL RIB SERIES: 10 VIEWS INCLUDING PA CHEST. HISTORY: Injury. COMPARISON CHEST X-RAY: July 12, 2018 FINDINGS: PA chest radiograph demonstrates an aortic valve replacement in position, unchanged. There are two small surgical clips in the right suprahilar region, also unchanged from the July 2018 prior study. There is no evidence of pneumothorax or hydrothorax. Pleural angles are sharp. Heart size is normal. Multiple views of the right ribcage and left rib cage demonstrate no visible rib fracture. No bony destructive lesion is appreciated. IMPRESSION: No rib fracture or bony destructive lesion seen. Status post aortic valve replacement. Surgical clips project in the right upper lobe perihilar region, unchanged. No active disease. Electronically Signed by Salo Amador MD 12/11/2019 05:30 P
== END ==
LOC: M LRY 13:52
PROVIDERS: ATTEND Nurse Practitioner Family
DX: S29.9XXA Unspecified injury of thorax, initial encounter (principal); X58.XXXA Exposure to other specified factors, initial encounter; Y92.9 Unspecified place or not applicable; Z95.2 Presence of prosthetic heart valve